=== PATIENT | male | born 1940 | race Caucasian/White ===

== ENCOUNTER 2025-03-11 15:03 | Inpatient (IN) | payer MEDICARE ==
[2025-03-11] MEDS ORDERED: VANCOMYCIN IV PER PHARMACY 1 EACH MISC MISCELLANE PRN (17:03)
[2025-03-11 17:31] LABS: Basophils # (A) 0.04 10*3/uL (0.00-0.10); Basophils % (A) 0.2 %; Eosinophils # (A) 0.03 10*3/uL (0.04-0.35); Eosinophils % (A) 0.2 %; HCT 38.0 % (39.6-50.0); HGB 12.9 g/dL (13.0-17.0); Lymphocytes # (A) 2.40 10*3/uL (0.90-5.00); Lymphocytes % (A) 13.1 %; MCH 32.9 pg (27.0-32.0); MCHC 33.9 g/dL (32.0-37.0); MCV 96.9 fL (80.0-97.0); Monocytes # (A) 2.03 10*3/uL (0.20-1.00); Monocytes % (A) 11.1 %; Neutrophils # (A) 13.72 10*3/uL (1.80-7.70); Neutrophils % (A) 74.8 %; Platelet Count 396 10*3/uL (140-440); RBC 3.92 10*6/uL (4.40-5.60); RDW 15.1 % (11.5-14.5); WBC 18.33 10*3/uL (4.50-10.00)
[2025-03-11] MEDS: SODIUM CHLORIDE 0.9% 1,000 ML IV STA (17:44)
[2025-03-11] MEDS ORDERED: KETOROLAC 15 MG/ML 1 ML VIAL IVP PRN (17:45)
[2025-03-11] MEDS ORDERED: NALOXONE 0.4 MG/ML 1 ML VIAL IV PRN (17:45)
[2025-03-11] MEDS ORDERED: MORPHINE SULFATE 4 MG/ML SYRINGE IV PRN (17:45)
[2025-03-11 17:54] LABS: ALT 67 U/L (4-49); AST 98 U/L (17-59); African American GFR (CKD) >90 (>60 ml/min/1.73 sqM); Albumin 2.7 g/dL (3.5-5.0); Alkaline Phosphatase 487 U/L (38-126); Anion Gap 7 mmol/L; Blood Urea Nitrogen 16 mg/dL (9-20); Calcium 8.6 mg/dL (8.4-10.2); Carbon Dioxide 28 mmol/L (22-30); Chloride 98 mmol/L (98-107); Glucose 109 mg/dL (74-99); Magnesium 2.2 mg/dL (1.6-2.3); Non-African American GFR(CKD) >90 (>60 ml/min/1.73 sqM); Potassium 4.4 mmol/L (3.5-5.1); Sodium 133 mmol/L (137-145); Total Protein 5.4 g/dL (6.3-8.2)
[2025-03-11] MEDS: DIPH,PERTUS(ACELL)TETVAC-LF 0.5 ML VIAL IM ONE (17:54)
[2025-03-11] MEDS: SODIUM CHLORIDE 0.9% 1,000 ML IV ONE (17:56)
[2025-03-11] MEDS: VANCOMYCIN 1,500 MG in SODIUM CHLORIDE 0.9% 500 ML 500 ML IVPB ONE (18:24)
--- NOTE | 2025-03-11 19:06 | ED ---
General Adult HPI - General Chief complaint: Skin/Abscess/Foreign Body Stated complaint: Failure to thrive Time Seen by Provider: 03/11/25 16:00 Source: patient, EMS, RN notes reviewed, old records reviewed Mode of arrival: EMS Limitations: physical limitation - History of Present Illness Initial comments: 85-year-old male who presents emergency department for decubitus ulcers and debility. Patient lives at home and typically receives help from his roommate, who is currently admitted to the hospital. He did have a nurse look at his decubitus ulcers as he is chronically wheelchair-bound and has not been turned recently. They were concerned for infection and told him to come to the ER for evaluation. Denies fevers, nausea, vomiting. Denies any abdominal pain. Denies any chest pain or shortness of breath. Endorses some mild buttock pain secondary to the ulcers. Has no other acute complaints at this time. Is up-to-date on tetanus. Presents for further evaluation. - Related Data Home Medications Medication Instructions Recorded Confirmed Atorvastatin [Lipitor] 40 mg PO DAILY 03/11/25 03/11/25 Cyclobenzaprine [Flexeril] 10 mg PO HS PRN 03/11/25 03/11/25 FLUoxetine HCL [PROzac] See Taper PO DAILY 03/11/25 03/11/25 Metoprolol Succinate (ER) [Toprol 100 mg PO DAILY 03/11/25 03/11/25 Xl] buPROPion XL [Wellbutrin XL] 150 mg PO DAILY 03/11/25 03/11/25 busPIRone HCl [Buspar] 5 mg PO TID 03/11/25 03/11/25 Allergies Allergy/AdvReac Type Severity Reaction Status Date / Time No Known Allergies Allergy Verified 03/11/25 18:21 Review of Systems ROS Statement: Those systems with pertinent positive or pertinent negative responses have been documented in the HPI. Review of Systems: CONST: Denies fever EYES: Denies blurry vision ENT: Denies nasal congestion C/V: Denies Chest pain RESP: Denies shortness of breath GI: Denies abdominal pain : Denies dysuria SKIN: Endorses infected decubitus ulcers MSK: Denies joint pain. NEURO: Denies headache ROS Other: All systems not noted in ROS Statement are negative. Past Medical History Past Medical History: Hypertension Smoking Status: Never smoker Past Alcohol Use History: Rare Past Drug Use History: None Reported General Exam - General Exam Comments Initial Comments: General: Appears in no acute distress. Afebrile HEAD: Normal with no signs of head trauma. EYES: PERRLA, EOMI, conjunctiva normal, no discharge. ENT: Hearing grossly intact, normal oropharynx. RESPIRATORY: Clear breath sounds bilaterally. No wheezes, rales, or rhonchi. C/V: Regular rate and rhythm. S1 and S2 auscultated, no edema, peripheral pulses 2+ and intact throughout ABD: Abd is soft, nontender, nondistended EXT: Normal range of motion, no obvious deformity SKIN: Decubitus ulcers examined in the presence of a nurse disability case manager. Patient has 2 stage II decubitus ulcers, both with what appears to be purulent material. One is located over the sacrum and the other over the right buttock. Wound cultures obtained and sent. Noting erythema present. NEURO: Alert and oriented x 4. No obvious focal deficits. Limitations: physical limitation Course Vital Signs 03/11/25 03/11/25 03/11/25 15:04 16:58 18:00 Temperature 98.3 F Pulse Rate 94 88 89 Respiratory 16 16 16 Rate Blood Pressure 125/69 132/71 129/63 O2 Sat by Pulse 99 97 98 Oximetry 03/11/25 03/11/25 19:37 21:33 Temperature Pulse Rate 89 95 Respiratory 18 18 Rate Blood Pressure 135/63 142/69 O2 Sat by Pulse 96 98 Oximetry Medical Decision Making - Medical Decision Making Was pt. sent in by a medical professional or institution (, PA, CYBER SECURITY ARCHITECT, urgent care, hospital, or detention...) When possible be specific @ -No Did you speak to anyone other than the patient for history (EMS, parent, family, police, friend...)? What history was obtained from this source @ -No Did you review nursing and triage notes (agree or disagree)? Why? @ -I reviewed and agree with nursing and triage notes Were old charts reviewed (outside hosp., previous admission, EMS record, old EKG, old radiological studies, urgent care reports/EKG's, detention records)? Report findings @ -No old charts were reviewed Differential Diagnosis (chest pain, altered mental status, abdominal pain women, abdominal pain men, vaginal bleeding, weakness, fever, dyspnea, syncope, headache, dizziness, GI bleed, back pain, seizure, CVA, palpatations, mental health, musculoskeletal)? @ -Decubitus ulcer, cellulitis, sepsis. This list is not all-inclusive. EKG interpreted by me (3pts min.). @ -As above X-rays interpreted by me (1pt min.). @ -None done CT interpreted by me (1pt min.). @ -None done U/S interpreted by me (1pt. min.). @ -None done What testing was considered but not performed or refused? (CT, X-rays, U/S, labs)? Why? @ -None What meds were considered but not given or refused? Why? @ -None Did you discuss the management of the patient with other professionals (professionals i.e. , PA, CYBER SECURITY ARCHITECT, lab, RT, psych nurse, clinical social worker, package dyeing machine operator, teacher, morals squad police officer, case aide)? Give summary @ -I spoke with the admitting provider, Dr. Cotton who accepted the admission. Was smoking cessation discussed for >3mins.? @ -No Was critical care preformed (if so, how long)? @ -No Were there social determinants of health that impacted care today? How? (H omelessness, low income, unemployed, alcoholism, drug addiction, transportation, low edu. Level, literacy, decrease access to med. care, detention, rehab)? @ -No Was there de-escalation of care discussed even if they declined (Discuss DNR or withdrawal of care, Hospice)? DNR status @ -No What co-morbidities impacted this encounter? (DM, HTN, Smoking, COPD, CAD, Cancer, CVA, ARF, Chemo, Hep., AIDS, mental health diagnosis, sleep apnea, morbid obesity)? @ -Chronic debility, chronic decubitus ulcers Was patient admitted / discharged? Hospital course, mention meds given and route, prescriptions, significant lab abnormalities, going to OR and other pertinent info. @ -Patient presents emergency department complaining of decubitus ulcers as well as no help at home. Is wheelchair-bound. Vitals are within acceptable limits. Afebrile. Examination of his decubitus ulcers remarkable for purulent discharge and surrounding erythema. Concern for infection. Culture obtained and sent. Blood culture sent, basic labs drawn, patient started on IV vancomycin. Remainder the patient's labs returned remarkable for leukocytosis of 18.3. CRP elevation. No other significant findings. Mild elevation in LFTs with no abdominal pain. Patient only has 1 SIRS criteria. Does not meet sepsis criteria. Only SIRS criteria is leukocytosis. Patient does not have a fever. Heart rate is 88. Patient has a normal respiratory rate. On reevaluation, patient is resting comfortably at this time. I updated him. He will be admitted on IV vancomycin. He was in agreement this plan. Consult placed to Dr. Arana for the decubitus wounds. I spoke with the admitting provider, Dr. Cotton who accepted the admission. Undiagnosed new problem with uncertain prognosis? @ -No Drug Therapy requiring intensive monitoring for toxicity (Heparin, Nitro, Insulin, Cardizem)? @ -No Were any procedures done? @ -No Diagnosis/symptom? @ -Infected decubitus ulcers, cellulitis Acute, or Chronic, or Acute on Chronic? @ -Acute Uncomplicated (without systemic symptoms) or Complicated (systemic symptoms)? @ -Complicated Side effects of treatment? @ -No Exacerbation, Progression, or Severe Exacerbation? @ -No Poses a threat to life or bodily function? How? (Chest pain, [place], [place], pneumonia, PE, COPD, DKA, ARF, appy, cholecystitis, CVA, Diverticulitis, Homicidal, Suicidal, threat to staff... and all critical care pts) @ -Yes - Lab Data Result diagrams: 03/11/25 17:27 03/11/25 17:27 Lab Results 03/11/25 03/11/25 03/11/25 Range/Units 17:27 17:27 17:27 WBC 18.33 H (4.50-10.00) 10*3/uL RBC 3.92 L (4.40-5.60) 10*6/uL Hgb 12.9 L (13.0-17.0) g/dL Hct 38.0 L (39.6-50.0) % MCV 96.9 (80.0-97.0) fL MCH 32.9 H (27.0-32.0) pg MCHC 33.9 (32.0-37.0) g/dL Plt Count 396 (140-440) 10*3/uL MPV 8.3 L (9.5-12.2) fL Immature Gran % (Auto) 0.6 % Neutrophils % 74.8 % Lymphocytes % 13.1 % Monocytes % 11.1 % Eosinophils % 0.2 % Basophils % 0.2 % Immature Gran # 0.11 H (0.00-0.04) 10*3/uL Neutrophils # 13.72 H (1.80-7.70) 10*3/uL Lymphocytes # 2.40 (0.90-5.00) 10*3/uL Monocytes # 2.03 H (0.20-1.00) 10*3/uL Eosinophils # 0.03 L (0.04-0.35) 10*3/uL Basophils # 0.04 (0.00-0.10) 10*3/uL Sodium 133 L (137-145) mmol/L Potassium 4.4 (3.5-5.1) mmol/L Chloride 98 (98-107) mmol/L Carbon Dioxide 28 (22-30) mmol/L Anion Gap 7 mmol/L BUN 16 (9-20) mg/dL Creatinine 0.53 L (0.66-1.25) mg/dL Est GFR (CKD-EPI)AfAm >90 (>60 ml/min/1.73 sqM) Est GFR (CKD-EPI)NonAf >90 (>60 ml/min/1.73 sqM) Glucose 109 H (74-99) mg/dL Calcium 8.6 (8.4-10.2) mg/dL Magnesium 2.2 (1.6-2.3) mg/dL Total Bilirubin 1.8 H (0.2-1.3) mg/dL AST 98 H (17-59) U/L ALT 67 H (4-49) U/L Alkaline Phosphatase 487 H (38-126) U/L Creatine Kinase 37 L (55-170) U/L C-Reactive Protein 28.2 H (<1.0) mg/dL Total Protein 5.4 L (6.3-8.2) g/dL Albumin 2.7 L (3.5-5.0) g/dL - EKG Data -: EKG Interpreted by Me EKG Comments: 12-lead Electrocardiogram Interpretation Note EKG was reviewed and interpreted by myself. 12-lead ECG performed at 1628 is interpreted by me as revealing normal sinus rhythm at a rate of 87 beats per minute. [place] is normal. AL interval is 161 ms, QRS durations 108 ms, QTc is 409 ms.. There were no ST or T wave abnormalities to suggest myocardial ischemia or injury. R wave progression across the precordium was satisfactory. By my interpretation this EKG is non-diagnostic for acute ischemia. Disposition Clinical Impression: Infected decubitus ulcer, Cellulitis Disposition: ADMITTED IP TO THIS HOSP Condition: Stable Time of Disposition: 17:45
[2025-03-11 19:48] LABS: Creatine Kinase 37.0 U/L (55-170)
--- NOTE | 2025-03-11 19:54 | P.GSCN ---
History of Present Illness Consult date: 03/11/25 History of present illness: CHIEF COMPLAINT: Sacral ulcer HISTORY OF PRESENT ILLNESS: The patient is a 85-year-old male who was transferred to the emergency room due to generalized weakness. Patient lives alone. Patient presented with elevated white blood cell count. No reports of fevers. He has sacral abscesses of unknown length of time. General surgery is consulted for wound care management. Patient reports that he barely eats or has an appetite. PAST MEDICAL HISTORY: See list and reviewed PAST SURGICAL HISTORY: See list and reviewed MEDICATIONS: See list and reviewed ALLERGIES: See list and reviewed SOCIAL HISTORY: See list and reviewed FAMILY HISTORY: See list and reviewed REVIEW OF ORGAN SYSTEMS: CONSTITUTIONAL: No fevers or chills. No recent weight loss. EYES: Denies any trouble with vision. Wears glasses. HEENT: No difficulties with hearing. No nosebleeds. No difficulty swallowing. RESPIRATORY: Denies pneumonia. Denies any troubles with breathing or dyspnea on exertion. CARDIOVASCULAR: Hypertensive heart disease. Hyperlipidemia. GASTROINTESTINAL: Denies fatty food intolerance. Denies change in bowel habits and gas bloat. GENITOURINARY: Denies any blood in urine or increased urinary frequency. NEUROLOGICAL: Has generalized weakness. MUSCULOSKELETAL: Has back pain, stiffness or joint arthritis. SKIN: No current skin cancer. No rash. PSYCHIATRIC: Has depressive disorder. ENDOCRINE: Denies current thyroid disorders. Denies any blood sugar glucose intolerance. HEME/LYMPHATIC: Denies any lumps and bumps around the neck. No recent deep venous thrombosis. ALLERGY/IMMUNOLOGY: No immunoglobulin therapy. No immune deficiencies. BREAST: Denies current breast lumps, pain or nipple discharge. PHYSICAL EXAM: VITALS: Reviewed CONSTITUTIONAL: Well developed and in no acute distress. EYES: Conjuctivae without sclera icterus. Extraocular movements grossly intact. HEAD, EARS, NOSE, THROAT: Moist buccal mucosa. Head is atraumatic, normocephalic. Hears conversational speech. No nasal drainage. NECK: Supple. No JV distention. No thyroidomegaly. RESPIRATORY: Non-labored respirations and equal bilateral excursions. No gross wheezes. CARDIOVASCULAR: Palpable 2+ radial pulses. ABDOMEN: Nontender. LYMPH: No neck lymphadenopathy. MUSCULOSKELETAL: No clubbing cyanosis or edema SKIN: Trochanteric and sacral ulcers identified unstageable. Purulent drainage. NEUROLOGIC: Cranial nerves II through XII grossly intact. No focal or lateralizing signs. PSYCH: Appropriate affect. Alert and oriented to person, place and time. Displays appropriate insight. CLINCAL LABS: Reviewed. WBC elevated over 18,000. Anemia, hemoglobin 12.9. Sodium low 133. LFTs moderately elevated. Albumin low 2.7. EKG: Borderline. RECORDS: No records available at this institution. ASSESSMENT: 1. Unstageable pressure ulcer 2. Leukocytosis with sepsis 3. Generalized moderate to severe malnutrition 4. Elevated LFTs 5. Anemia 6. Hyponatremia PLAN: 1. Recommend IV antibiotics 2. Recommend infectious disease consultation for IV antibiotics management 3. Recommend consultation with wound care clinic. 4. Agree inpatient hospitalization due to moderate leukocytosis and infected wound ADVANCE DIRECTIVE: CODE STATUS in chart Thank you for this kind consultation. Dictation was produced using [employer] dictation software. Please excuse any grammatical, word or spelling errors. Past Medical History Past Medical History: Hypertension Smoking Status: Never smoker Past Alcohol Use History: Rare Past Drug Use History: None Reported - Past Family History Mother Family Medical History: Cancer Medications and Allergies Home Medications Medication Instructions Recorded Confirmed Type FLUoxetine HCL [PROzac] 10 mg PO BID 03/11/25 03/12/25 History Metoprolol Succinate (ER) [Toprol 100 mg PO DAILY 03/11/25 03/11/25 History XL] busPIRone HCl [Buspar] 5 mg PO TID 03/11/25 03/11/25 History Multivitamins, Thera [Multivitamin 1 tab PO DAILY 03/12/25 03/12/25 History (formulary)] Retinavites 2 1 tab PO BID 03/12/25 03/12/25 History Acetaminophen Tab [Tylenol] 325 mg PO BID PRN #0 03/17/25 03/12/25 Rx Aspirin EC [Ecotrin Low Dose] 81 mg PO DAILY #0 03/17/25 03/12/25 Rx Cholestyramine Resin [Questran 4 gm PO BID@1000,1800 packet 03/17/25 Rx Packet] Cyclobenzaprine [Flexeril] 10 mg PO HS PRN tab 03/17/25 Rx Loperamide [Imodium] 2 mg PO QID PRN cap 03/17/25 Rx Piperacillin-Tazobactam [Zosyn] 3.375 gm IVPB Q8HR #84 each 03/17/25 Rx buPROPion XL [Wellbutrin XL] 150 mg PO DAILY tab 03/17/25 Rx Allergies Allergy/AdvReac Type Severity Reaction Status Date / Time No Known Allergies Allergy Verified 03/11/25 18:21 Surgical - Exam Vital Signs Temp Pulse Resp BP Pulse Ox 98.3 F 94 16 125/69 99 03/11/25 15:04 03/11/25 15:04 03/11/25 15:04 03/11/25 15:04 03/11/25 15:04 Results - Labs 03/18/25 02:50 03/18/25 02:50 Abnormal Lab Results - Last 24 Hours (Table) 03/11/25 03/11/25 Range/Units 17:27 17:27 WBC 18.33 H (4.50-10.00) 10*3/uL RBC 3.92 L (4.40-5.60) 10*6/uL Hgb 12.9 L (13.0-17.0) g/dL Hct 38.0 L (39.6-50.0) % MCH 32.9 H (27.0-32.0) pg MPV 8.3 L (9.5-12.2) fL Immature Gran # 0.11 H (0.00-0.04) 10*3/uL Neutrophils # 13.72 H (1.80-7.70) 10*3/uL Monocytes # 2.03 H (0.20-1.00) 10*3/uL Eosinophils # 0.03 L (0.04-0.35) 10*3/uL Sodium 133 L (137-145) mmol/L Creatinine 0.53 L (0.66-1.25) mg/dL Glucose 109 H (74-99) mg/dL Total Bilirubin 1.8 H (0.2-1.3) mg/dL AST 98 H (17-59) U/L ALT 67 H (4-49) U/L Alkaline Phosphatase 487 H (38-126) U/L Total Protein 5.4 L (6.3-8.2) g/dL Albumin 2.7 L (3.5-5.0) g/dL Diabetes panel 03/11/25 Range/Units 17:27 Sodium 133 L (137-145) mmol/L Potassium 4.4 (3.5-5.1) mmol/L Chloride 98 (98-107) mmol/L Carbon Dioxide 28 (22-30) mmol/L BUN 16 (9-20) mg/dL Creatinine 0.53 L (0.66-1.25) mg/dL Glucose 109 H (74-99) mg/dL Calcium 8.6 (8.4-10.2) mg/dL AST 98 H (17-59) U/L ALT 67 H (4-49) U/L Alkaline Phosphatase 487 H (38-126) U/L Total Protein 5.4 L (6.3-8.2) g/dL Albumin 2.7 L (3.5-5.0) g/dL Calcium panel 03/11/25 Range/Units 17:27 Calcium 8.6 (8.4-10.2) mg/dL Albumin 2.7 L (3.5-5.0) g/dL Pituitary panel 03/11/25 Range/Units 17:27 Sodium 133 L (137-145) mmol/L Potassium 4.4 (3.5-5.1) mmol/L Chloride 98 (98-107) mmol/L Carbon Dioxide 28 (22-30) mmol/L BUN 16 (9-20) mg/dL Creatinine 0.53 L (0.66-1.25) mg/dL Glucose 109 H (74-99) mg/dL Calcium 8.6 (8.4-10.2) mg/dL Adrenal panel 03/11/25 Range/Units 17:27 Sodium 133 L (137-145) mmol/L Potassium 4.4 (3.5-5.1) mmol/L Chloride 98 (98-107) mmol/L Carbon Dioxide 28 (22-30) mmol/L BUN 16 (9-20) mg/dL Creatinine 0.53 L (0.66-1.25) mg/dL Glucose 109 H (74-99) mg/dL Calcium 8.6 (8.4-10.2) mg/dL Total Bilirubin 1.8 H (0.2-1.3) mg/dL AST 98 H (17-59) U/L ALT 67 H (4-49) U/L Alkaline Phosphatase 487 H (38-126) U/L Total Protein 5.4 L (6.3-8.2) g/dL Albumin 2.7 L (3.5-5.0) g/dL
--- NOTE | 2025-03-11 21:14 | P.HPIM ---
History of Present Illness H&P Date: 03/11/25 Chief Complaint: Back pain This is a 85-year-old male patient presenting from home with a past medical history of essential hypertension for concern of an infected decubitus ulcer with complaints of back pain. Patient is sickly dependent on his roommate but unfortunately is admitted to the hospital. It appears that patient is chronically wheelchair-bound and not much has been returned recently. He is suspecting that his ulcer is infected. He reported that a nurse did look at his ulcer and reported that he needs to present to the ER for further evaluation. He denies having any fevers or chills. He does report back and buttock pain. No prior visits to the hospital Upon arrival to the ED, patient was hemodynamically stable. Labs done showing WBC of 18.33, hemoglobin of 12.9, sodium 133, kidney function within normal limit, total bilirubin 1.8, AST 98, ALT 67, alk phos 487, albumin 2.7. Patient received vancomycin and Dr. Vela was consulted. Past medical history : HTN Social history : No tobacco use, no illicit drug use, Review of systems : Negative except for mentioned in HPI PE : General: ill looking , cachectic Derm: warm, dry, intact Head: atraumatic, normocephalic, symmetric Eyes: EOMI, anicteric sclera Mouth: no lip lesion, mucus membranes moist Cardiovascular: S1 S2 reg, no murmur, rubs, or gallops Lungs: CTA bilateral, no rales, no accessory muscle use Abdominal: soft, non-tender to palpataion, no appreciable organomegaly Extremities: no gross muscle atrophy, no edema, no contractures Skin : Stage II decubitus ulcer with purulent discharge. Located over the sacrum and over the right buttocks Assessment and plan : - Skin and soft tissue infection with leukocytosis due to infected decubitus ulcer : Reports of purulent material from the infected site Blood cultures and wound cultures were taken Surgery was consulted Patient did not meet sepsis criteria Will order CRP and ESR Treated initially with vancomycin and will continue with vancomycin and Zosyn with pharmacy consult Wound care consult -Elevated liver enzymes/hyperbilirubinemia : Unknown cause Denies alcohol use Patient was never told that his liver enzymes were elevated prior Will order creatinine kinase Will order right upper quadrant ultrasound Patient denies having any abdominal pain -Failure to thrive in adult/hypoalbuminemia/protein calorie malnutrition: Dietitian consult CODE STATUS is full code and his prognosis is guarded DVT prophylaxis on heparin subcu Disposition : Patient will need PT evaluation and likely will benefit from placement Patient will be admitted as inpatient Time spent : 55 min Past Medical History Past Medical History: Hypertension Smoking Status: Never smoker Past Alcohol Use History: Rare Past Drug Use History: None Reported Medications and Allergies Home Medications Medication Instructions Recorded Confirmed Type Atorvastatin [Lipitor] 40 mg PO DAILY 03/11/25 03/11/25 History Cyclobenzaprine [Flexeril] 10 mg PO HS PRN 03/11/25 03/11/25 History FLUoxetine HCL [PROzac] See Taper PO DAILY 03/11/25 03/11/25 History Metoprolol Succinate (ER) [Toprol 100 mg PO DAILY 03/11/25 03/11/25 History Xl] buPROPion XL [Wellbutrin XL] 150 mg PO DAILY 03/11/25 03/11/25 History busPIRone HCl [Buspar] 5 mg PO TID 03/11/25 03/11/25 History Allergies Allergy/AdvReac Type Severity Reaction Status Date / Time No Known Allergies Allergy Verified 03/11/25 18:21 Physical Exam Vitals: Vital Signs Temp Pulse Resp BP Pulse Ox 03/11/25 18:00 89 16 129/63 98 03/11/25 16:58 88 16 132/71 97 03/11/25 15:04 98.3 F 94 16 125/69 99 Intake and Output 03/11/25 03/11/25 03/11/25 06:59 14:59 22:59 Other: Weight 79.379 kg Results CBC & Chem 7: 03/11/25 17:27 03/11/25 17:27 Labs: Abnormal Lab Results - Last 24 Hours (Table) 03/11/25 03/11/25 Range/Units 17:27 17:27 WBC 18.33 H (4.50-10.00) 10*3/uL RBC 3.92 L (4.40-5.60) 10*6/uL Hgb 12.9 L (13.0-17.0) g/dL Hct 38.0 L (39.6-50.0) % MCH 32.9 H (27.0-32.0) pg MPV 8.3 L (9.5-12.2) fL Immature Gran # 0.11 H (0.00-0.04) 10*3/uL Neutrophils # 13.72 H (1.80-7.70) 10*3/uL Monocytes # 2.03 H (0.20-1.00) 10*3/uL Eosinophils # 0.03 L (0.04-0.35) 10*3/uL Sodium 133 L (137-145) mmol/L Creatinine 0.53 L (0.66-1.25) mg/dL Glucose 109 H (74-99) mg/dL Total Bilirubin 1.8 H (0.2-1.3) mg/dL AST 98 H (17-59) U/L ALT 67 H (4-49) U/L Alkaline Phosphatase 487 H (38-126) U/L Total Protein 5.4 L (6.3-8.2) g/dL Albumin 2.7 L (3.5-5.0) g/dL
--- NOTE | 2025-03-11 21:36 | US ---
EXAMINATION TYPE: US abdomen limited DATE OF EXAM: 03/11/2025 COMPARISON: NONE CLINICAL INDICATION: Male, 85 years old with history of elevated liver enzymes , RUQ U/S; liver enzym es TECHNIQUE: Grayscale and color Doppler imaging of the right upper quadrant was performed. FINDINGS: EXAM MEASUREMENTS: Liver Length: 13.3 cm Gallbladder Wall: 0.3 cm CBD: obscured by gas and rib shadows Right Kidney: 10.4 x 5.7 x 4.8 cm HOUSE PAINTER HELPER NOTES: severely limited due to gas and body habitus. intercostal views used for entiret y of exam Pancreas: Obscured by bowel gas Liver: portions visualized wnl Gallbladder: wnl as best visualized intercostally Evidence for sonographic Juares's sign: no CBD: Obscured by overlying bowel gas Right Kidney: multiple anechoic areas largest in the superior pole measuring 7.0 x 6.1 x 8.3cm. anec hoic areas within the collection system. two echogenic foci seen, one mid measuring 1.0cm and one inf erior measuring 7mm IMPRESSION: Exam is limited due to gas and body habitus. The common bile duct is not visualized however the gallb ladder and visualized portions of the liver appears within normal limits. Cystic changes are suggested within the right kidney with the largest of these measuring up to 8.3 cm . Additionally right renal calculi are seen measuring up to 1.0 cm. No discrete sonographic evidence for right hydronephrosis. [facility], , 03/11/2025 9:34 PM
[2025-03-11] MEDS: PIPERACILLIN-TAZOBACTAM 3.375 GM in SODIUM CHLORIDE 0.9% 100 ML IVPB SCH (21:40)
[2025-03-11] MEDS: HEPARIN SODIUM,PORCINE 5,000 UNIT/ML 1 ML VIAL SQ SCH (21:40)
[2025-03-12] MEDS: ACETAMINOPHEN TAB 325 MG TAB PO PRN (04:03)
[2025-03-12] MEDS: VANCOMYCIN 1,500 MG in SODIUM CHLORIDE 0.9% 500 ML 500 ML IVPB SCH (06:38)
[2025-03-12 07:03] LABS: Bacteria,Urine Rare /hpf; Bilirubin,Urine Negative (Negative); Blood,Urine Small (Negative); Color,Urine Yellow; Glucose,Urine (UA) Negative (Negative); Ketones,Urine Negative (Negative); Leukocyte Esterase,Urine Moderate (Negative); Mucus,Urine Rare /hpf; Nitrite,Urine Negative (Negative); PH, Urine 5.5 (5.0-8.0); Protein,Urine 1+ (Negative); RBC,Urine 21 /hpf (0-5); Specific Gravity,Urine 1.023 (1.001-1.035); Urobilinogen,Urine 2.0 mg/dL (<2.0); WBC,Urine 21 /hpf (0-5)
[2025-03-12 09:58] LABS: Basophils # (A) 0.05 10*3/uL (0.00-0.10); Basophils % (A) 0.3 %; Eosinophils # (A) 0.07 10*3/uL (0.04-0.35); Eosinophils % (A) 0.5 %; HCT 37.4 % (39.6-50.0); HGB 12.4 g/dL (13.0-17.0); Lymphocytes # (A) 2.29 10*3/uL (0.90-5.00); Lymphocytes % (A) 15.6 %; MCH 33.2 pg (27.0-32.0); MCHC 33.2 g/dL (32.0-37.0); MCV 100.0 fL (80.0-97.0); Monocytes # (A) 1.57 10*3/uL (0.20-1.00); Monocytes % (A) 10.7 %; Neutrophils # (A) 10.56 10*3/uL (1.80-7.70); Neutrophils % (A) 72.1 %; Platelet Count 356 10*3/uL (140-440); RBC 3.74 10*6/uL (4.40-5.60); RDW 15.1 % (11.5-14.5); WBC 14.66 10*3/uL (4.50-10.00)
[2025-03-12 10:15] LABS: ALT 72 U/L (4-49); AST 109 U/L (17-59); African American GFR (CKD) >90 (>60 ml/min/1.73 sqM); Albumin 2.3 g/dL (3.5-5.0); Albumin/Globulin Ratio 1.0; Alkaline Phosphatase 408 U/L (38-126); Anion Gap 8 mmol/L; Blood Urea Nitrogen 14 mg/dL (9-20); Calcium 8.1 mg/dL (8.4-10.2); Carbon Dioxide 23 mmol/L (22-30); Chloride 105 mmol/L (98-107); Globulin 2.4 g/dL; Glucose 104 mg/dL (74-99); Non-African American GFR(CKD) >90 (>60 ml/min/1.73 sqM); Potassium 4.2 mmol/L (3.5-5.1); Sodium 136 mmol/L (137-145); Total Protein 4.7 g/dL (6.3-8.2)
[2025-03-12 12:01] VITALS: BMI 23.7
[2025-03-12] MEDS ORDERED: CYCLOBENZAPRINE 10 MG TAB PO PRN (12:01)
--- NOTE | 2025-03-12 12:03 | P.PN ---
Subjective Progress Note Date: 03/12/25 Hospital Course: This is a 85-year-old male patient presenting from home with a past medical hi story of essential hypertension for concern of an infected decubitus ulcer with complaints of back pain. Patient is sickly dependent on his roommate but unfortunately is admitted to the hospital. It appears that patient is chronically wheelchair-bound and not much has been returned recently. He is suspecting that his ulcer is infected. He reported that a nurse did look at his ulcer and reported that he needs to present to the ER for further evaluation. He denies having any fevers or chills. He does report back and buttock pain. No prior visits to the hospital Upon arrival to the ED, patient was hemodynamically stable. Labs done showing WBC of 18.33, hemoglobin of 12.9, sodium 133, kidney function within normal limit, total bilirubin 1.8, AST 98, ALT 67, alk phos 487, albumin 2.7. Patient received vancomycin and Dr. Vela was consulted. They recommended wound care consult as well as infectious disease.. 03/12/2025: Seen examined in the ER, no acute events overnight, patient complains of chronic wounds, no other particular complaints at this time. He shared that he has been more sedentary recently, he sometimes is able to get up and use walkers but is wheelchair-bound at home. He is afebrile with normal blood pressure, satting well on room air. Blood work shows improving leukocytosis 14.6, stable hemoglobin 12.4, platelet count normal, sodium improved to 126, potassium and chloride normal, creatinine 0.52, AST 109, ALT 72, ALP 480, CRP significantly elevated 28.2, ESR elevated 58. Abdominal ultrasound showed very limited exam due to gas, CBD not visualized, gallbladder and visualized portion of the liver appears within normal limits. Right kidney cystic changes with largest cyst 8.3 cm Pertinent positives and negatives as discussed above, a complete review of systems was performed and all other systems are negative. Vitals Signs Reviewed. General: [nontoxic], [chronically ill-appearing Derm: [Stage II decubitus ulcer with purulent discharge. Located over the sacrum and over the right buttocks Head: [atraumatic], [normocephalic], [symmetric] Eyes: [EOMI], [no lid lag], [anicteric sclera] Mouth: [no lip lesion], [mucus membranes moist] Cardiovascular: [S1S2 reg], [no murmur] Lungs: [CTA bilateral], [no rhonchi, no rales] , [no accessory muscle use] Abdominal: [soft], [ nontender to palpation], [no guarding], [no appreciable organomegaly] Ext: [no gross muscle atrophy], [no edema], [no contractures] Neuro: [ CN II-XI grossly intact], [no focal neuro deficits] Psych: [Alert], [oriented], [appropriate affect] Assessment and Plan: Infected decubitus ulcer Failure to thrive Protein calorie malnutrition - General Surgery consulted, wound care consulted, infectious disease consulted, appreciate recommendations - Follow-up on blood and blood cultures - Inflammatory markers elevated as above - Continue vancomycin pharmacy to dose, Zosyn 3.375 every 8 hours, monitor BMP daily for renal toxicity, monitor CBC daily due to leukocytosis - Ordered MRSA swab - PT OT consulted -Nutrition consulted Elevated ALP, liver enzymes, unknown cause -Abdominal ultrasound as above -Recheck CMP in the morning -No abdominal pain or tenderness Hypertension Depression Hyperlipidemia -Continue home Lipitor 40 daily, Wellbutrin 150 daily, BuSpar 5 mg 3 times daily, Prozac 10 mg daily, metoprolol 100 mg daily DVT ppx: Heparin Code status: Full code Anticipated discharge place: TBD Anticipated discharge time: TBD Objective - Vital Signs Vital signs: Vital Signs Temp 98.2 F 03/12/25 03:58 Pulse 87 03/12/25 08:03 Resp 18 03/12/25 08:03 BP 107/56 03/12/25 08:03 Pulse Ox 100 03/12/25 08:03 FiO2 Intake & Output 03/11/25 03/12/25 03/12/25 18:59 06:59 18:59 Weight 79.379 kg 79.379 kg - Labs CBC & Chem 7: 03/12/25 08:25 03/12/25 08:25 Labs: Abnormal Lab Results - Last 24 Hours (Table) 03/11/25 03/11/25 03/11/25 Range/Units 17:27 17:27 17:27 WBC 18.33 H (4.50-10.00) 10*3/uL RBC 3.92 L (4.40-5.60) 10*6/uL Hgb 12.9 L (13.0-17.0) g/dL Hct 38.0 L (39.6-50.0) % MCV (80.0-97.0) fL MCH 32.9 H (27.0-32.0) pg RDW (11.5-14.5) % MPV 8.3 L (9.5-12.2) fL Immature Gran # 0.11 H (0.00-0.04) 10*3/uL Neutrophils # 13.72 H (1.80-7.70) 10*3/uL Monocytes # 2.03 H (0.20-1.00) 10*3/uL Eosinophils # 0.03 L (0.04-0.35) 10*3/uL ESR (0-20) mm/Hr Sodium 133 L (137-145) mmol/L Creatinine 0.53 L (0.66-1.25) mg/dL Glucose 109 H (74-99) mg/dL Calcium (8.4-10.2) mg/dL Total Bilirubin 1.8 H (0.2-1.3) mg/dL AST 98 H (17-59) U/L ALT 67 H (4-49) U/L Alkaline Phosphatase 487 H (38-126) U/L Creatine Kinase 37 L (55-170) U/L C-Reactive Protein 28.2 H (<1.0) mg/dL Total Protein 5.4 L (6.3-8.2) g/dL Albumin 2.7 L (3.5-5.0) g/dL Urine Protein (Negative) Urine Blood (Negative) Ur Leukocyte Esterase (Negative) Urine RBC (0-5) /hpf Urine WBC (0-5) /hpf Urine Bacteria (None) /hpf Urine Mucus (None) /hpf 03/11/25 03/12/25 03/12/25 Range/Units 17:27 06:43 08:25 WBC 14.66 H (4.50-10.00) 10*3/uL RBC 3.74 L (4.40-5.60) 10*6/uL Hgb 12.4 L (13.0-17.0) g/dL Hct 37.4 L (39.6-50.0) % MCV 100.0 H (80.0-97.0) fL MCH 33.2 H (27.0-32.0) pg RDW 15.1 H (11.5-14.5) % MPV 9.3 L (9.5-12.2) fL Immature Gran # 0.12 H (0.00-0.04) 10*3/uL Neutrophils # 10.56 H (1.80-7.70) 10*3/uL Monocytes # 1.57 H (0.20-1.00) 10*3/uL Eosinophils # (0.04-0.35) 10*3/uL ESR 58 H (0-20) mm/Hr Sodium (137-145) mmol/L Creatinine (0.66-1.25) mg/dL Glucose (74-99) mg/dL Calcium (8.4-10.2) mg/dL Total Bilirubin (0.2-1.3) mg/dL AST (17-59) U/L ALT (4-49) U/L Alkaline Phosphatase (38-126) U/L Creatine Kinase (55-170) U/L C-Reactive Protein (<1.0) mg/dL Total Protein (6.3-8.2) g/dL Albumin (3.5-5.0) g/dL Urine Protein 1+ H (Negative) Urine Blood Small H (Negative) Ur Leukocyte Esterase Moderate H (Negative) Urine RBC 21 H (0-5) /hpf Urine WBC 21 H (0-5) /hpf Urine Bacteria Rare H (None) /hpf Urine Mucus Rare H (None) /hpf 03/12/25 Range/Units 08:25 WBC (4.50-10.00) 10*3/uL RBC (4.40-5.60) 10*6/uL Hgb (13.0-17.0) g/dL Hct (39.6-50.0) % MCV (80.0-97.0) fL MCH (27.0-32.0) pg RDW (11.5-14.5) % MPV (9.5-12.2) fL Immature Gran # (0.00-0.04) 10*3/uL Neutrophils # (1.80-7.70) 10*3/uL Monocytes # (0.20-1.00) 10*3/uL Eosinophils # (0.04-0.35) 10*3/uL ESR (0-20) mm/Hr Sodium 136 L (137-145) mmol/L Creatinine 0.52 L (0.66-1.25) mg/dL Glucose 104 H (74-99) mg/dL Calcium 8.1 L (8.4-10.2) mg/dL Total Bilirubin (0.2-1.3) mg/dL AST 109 H (17-59) U/L ALT 72 H (4-49) U/L Alkaline Phosphatase 408 H (38-126) U/L Creatine Kinase (55-170) U/L C-Reactive Protein (<1.0) mg/dL Total Protein 4.7 L (6.3-8.2) g/dL Albumin 2.3 L (3.5-5.0) g/dL Urine Protein (Negative) Urine Blood (Negative) Ur Leukocyte Esterase (Negative) Urine RBC (0-5) /hpf Urine WBC (0-5) /hpf Urine Bacteria (None) /hpf Urine Mucus (None) /hpf
--- NOTE | 2025-03-12 15:19 | P.CONS ---
History of Present Illness - Reason for Consult Consult date: 03/12/25 wound care - History of Present Illness This is an 85-year-old patient being seen in the ER exam 30 for a nonhealing ulceration to the sacrum. Patient has a stage III pressure ulcer to the sacrum measuring approximately 3 x 3.5 x 0.3 cm with significant amount of slough and nonviable tissue present the ulceration does have an odiferous odor. And purulent drainage to the site. No granulation seen throughout no tunneling or undermining noted. Wound edges are attached to the wound base. Excoriation noted to periwound. Past medical history significant for hypertension Review Of Systems: Constitutional: No fever, no chills, no night sweats. No weight change. No weakness, fatigue or lethargy. No daytime sleepiness. Integumentary:reports wounds, no lesions. No rash or pruritus. No unusual bruising. No change in hair or nails. Physical exam: General Appearance: Alert, cooperative, no distress, appears stated age. Skin: See HPI all other Skin color, texture, tugor normal, no rashes or lesions. Neurologic: Alert oriented x3 Assessment: 1. Stage III pressure ulcer sacrum Plan: 1. Apply honey gel and bordered foam to the site daily. Patient may benefit from a surgical debridement. Patient would benefit from advanced wound care and wound care setting. Patient states that he is unable to come to the wound care center upon discharge. We would be happy to see him if he is able to make it. Thank you for the consultation any questions please contact the wound care center DNP note has been reviewed and discussed with Dr. Overton and the impression and plan of care has been directed as dictated. Past Medical History Past Medical History: Hypertension Smoking Status: Never smoker Past Alcohol Use History: Rare Past Drug Use History: None Reported Medications and Allergies Home Medications Medication Instructions Recorded Confirmed Type Atorvastatin [Lipitor] 40 mg PO DAILY 03/11/25 03/11/25 History FLUoxetine HCL [PROzac] 10 mg PO BID 03/11/25 03/12/25 History Metoprolol Succinate (ER) [Toprol 100 mg PO DAILY 03/11/25 03/11/25 History Xl] busPIRone HCl [Buspar] 5 mg PO TID 03/11/25 03/11/25 History Acetaminophen Tab [Tylenol] 325 mg PO BID 03/12/25 03/12/25 History Aspirin EC [Ecotrin Low Dose] 81 mg PO DAILY 03/12/25 03/12/25 History Cyclobenzaprine [Flexeril] 5 mg PO HS PRN 03/12/25 03/12/25 History Multivitamins, Thera [Multivitamin 1 tab PO DAILY 03/12/25 03/12/25 History (formulary)] Retinavites 2 1 tab PO BID 03/12/25 03/12/25 History Allergies Allergy/AdvReac Type Severity Reaction Status Date / Time No Known Allergies Allergy Verified 03/11/25 18:21 Physical Exam Vitals: Vital Signs Temp Pulse Resp BP Pulse Ox 03/12/25 13:08 64 16 128/64 99 03/12/25 08:03 87 18 107/56 100 03/12/25 06:43 73 19 111/55 96 03/12/25 03:58 98.2 F 100 18 130/69 97 03/11/25 22:53 96 16 135/65 98 03/11/25 21:33 95 18 142/69 98 03/11/25 19:37 89 18 135/63 96 03/11/25 18:00 89 16 129/63 98 03/11/25 16:58 88 16 132/71 97 Intake and Output 03/12/25 03/12/25 03/12/25 06:59 14:59 22:59 Other: Weight 79.379 kg Results CBC & Chem 7: 03/12/25 08:25 03/12/25 08:25 Labs: Abnormal Lab Results - Last 24 Hours (Table) 03/11/25 03/11/25 03/11/25 Range/Units 17:27 17:27 17:27 WBC 18.33 H (4.50-10.00) 10*3/uL RBC 3.92 L (4.40-5.60) 10*6/uL Hgb 12.9 L (13.0-17.0) g/dL Hct 38.0 L (39.6-50.0) % MCV (80.0-97.0) fL MCH 32.9 H (27.0-32.0) pg RDW (11.5-14.5) % MPV 8.3 L (9.5-12.2) fL Immature Gran # 0.11 H (0.00-0.04) 10*3/uL Neutrophils # 13.72 H (1.80-7.70) 10*3/uL Monocytes # 2.03 H (0.20-1.00) 10*3/uL Eosinophils # 0.03 L (0.04-0.35) 10*3/uL ESR (0-20) mm/Hr Sodium 133 L (137-145) mmol/L Creatinine 0.53 L (0.66-1.25) mg/dL Glucose 109 H (74-99) mg/dL Calcium (8.4-10.2) mg/dL Total Bilirubin 1.8 H (0.2-1.3) mg/dL AST 98 H (17-59) U/L ALT 67 H (4-49) U/L Alkaline Phosphatase 487 H (38-126) U/L Creatine Kinase 37 L (55-170) U/L C-Reactive Protein 28.2 H (<1.0) mg/dL Total Protein 5.4 L (6.3-8.2) g/dL Albumin 2.7 L (3.5-5.0) g/dL Urine Protein (Negative) Urine Blood (Negative) Ur Leukocyte Esterase (Negative) Urine RBC (0-5) /hpf Urine WBC (0-5) /hpf Urine Bacteria (None) /hpf Urine Mucus (None) /hpf 03/11/25 03/12/25 03/12/25 Range/Units 17:27 06:43 08:25 WBC 14.66 H (4.50-10.00) 10*3/uL RBC 3.74 L (4.40-5.60) 10*6/uL Hgb 12.4 L (13.0-17.0) g/dL Hct 37.4 L (39.6-50.0) % MCV 100.0 H (80.0-97.0) fL MCH 33.2 H (27.0-32.0) pg RDW 15.1 H (11.5-14.5) % MPV 9.3 L (9.5-12.2) fL Immature Gran # 0.12 H (0.00-0.04) 10*3/uL Neutrophils # 10.56 H (1.80-7.70) 10*3/uL Monocytes # 1.57 H (0.20-1.00) 10*3/uL Eosinophils # (0.04-0.35) 10*3/uL ESR 58 H (0-20) mm/Hr Sodium (137-145) mmol/L Creatinine (0.66-1.25) mg/dL Glucose (74-99) mg/dL Calcium (8.4-10.2) mg/dL Total Bilirubin (0.2-1.3) mg/dL AST (17-59) U/L ALT (4-49) U/L Alkaline Phosphatase (38-126) U/L Creatine Kinase (55-170) U/L C-Reactive Protein (<1.0) mg/dL Total Protein (6.3-8.2) g/dL Albumin (3.5-5.0) g/dL Urine Protein 1+ H (Negative) Urine Blood Small H (Negative) Ur Leukocyte Esterase Moderate H (Negative) Urine RBC 21 H (0-5) /hpf Urine WBC 21 H (0-5) /hpf Urine Bacteria Rare H (None) /hpf Urine Mucus Rare H (None) /hpf 07//25 Range/Units 08:25 WBC (4.50-10.00) 10*3/uL RBC (4.40-5.60) 10*6/uL Hgb (13.0-17.0) g/dL Hct (39.6-50.0) % MCV (80.0-97.0) fL MCH (27.0-32.0) pg RDW (11.5-14.5) % MPV (9.5-12.2) fL Immature Gran # (0.00-0.04) 10*3/uL Neutrophils # (1.80-7.70) 10*3/uL Monocytes # (0.20-1.00) 10*3/uL Eosinophils # (0.04-0.35) 10*3/uL ESR (0-20) mm/Hr Sodium 136 L (137-145) mmol/L Creatinine 0.52 L (0.66-1.25) mg/dL Glucose 104 H (74-99) mg/dL Calcium 8.1 L (8.4-10.2) mg/dL Total Bilirubin (0.2-1.3) mg/dL AST 109 H (17-59) U/L ALT 72 H (4-49) U/L Alkaline Phosphatase 408 H (38-126) U/L Creatine Kinase (55-170) U/L C-Reactive Protein (<1.0) mg/dL Total Protein 4.7 L (6.3-8.2) g/dL Albumin 2.3 L (3.5-5.0) g/dL Urine Protein (Negative) Urine Blood (Negative) Ur Leukocyte Esterase (Negative) Urine RBC (0-5) /hpf Urine WBC (0-5) /hpf Urine Bacteria (None) /hpf Urine Mucus (None) /hpf Assessment and Plan (1) Stage III pressure ulcer of sacral region Current Visit: Yes Status: Acute Code(s): L89.153 - PRESSURE ULCER OF SACRAL REGION, STAGE 3 SNOMED Code(s): 41414632234475
[2025-03-12] MEDS: IV FLUID CONTINUATION 1,000 ML IV ONE (16:19)
[2025-03-12] MEDS: ONDANSETRON 4 MG/2 ML VIAL IVP PRN (16:32)
[2025-03-12] MEDS ORDERED: PROPOFOL 10 MG/ML 20 ML VIAL IV ONE (17:40)
[2025-03-12] MEDS ORDERED: VASOPRESSIN 20 UNIT/ML 1 ML VIAL ONE (17:40)
[2025-03-12] MEDS ORDERED: fentaNYL (PF) 50 MCG/ML 2 ML AMP ONE (17:40)
[2025-03-12] MEDS ORDERED: PHENYLEPHRINE-0.9% NACL SYG 1,000 MCG/10 ML SYRINGE ONE (17:40)
[2025-03-12] MEDS: LIDOCAINE 1%-EPI 1:100,000 20 ML VIAL SQ ONE (18:10)
[2025-03-12] MEDS ORDERED: ONDANSETRON 4 MG/2 ML VIAL IVP PRN (19:50)
[2025-03-12] MEDS ORDERED: HYDROmorphone 0.5 MG/0.5 ML SYRINGE IVP PRN (19:50)
[2025-03-12] MEDS ORDERED: HYDROmorphone 1 MG/ML 1 ML SYRINGE IVP PRN (19:50)
--- NOTE | 2025-03-13 07:11 | P.CONS ---
History of Present Illness - Reason for Consult Consult date: 03/12/25 Sepsis Requesting physician: Teresa Arana - Chief Complaint Nonhealing sacral wound and back pain x days - History of Present Illness Patient is a 85-year-old male with a past medical history significant for hypertension has been brought to the hospital concerning for infected sacral pressure ulcer patient apparently is dependent on his roommate for his care as the patient is chronically wheelchair-bound and has been brought in with the home care nurse look into his sacral wound concerning for infection with the patient has been sent to the hospital for further evaluation patient not very clear for how long he had this ulcer or what kind of treatment has been provided to him has been complaining of pain to the lower back area mostly dull aching mi ld to moderate days without radiation patient noticed to have significant slough tissue to the wound with some foul-smelling patient denies having any high-grade fever or any chills and no fever was recorded on presentation to the hospital patient was tachycardic but not hypotensive or hypoxic he did have elevated white count of 18.33 with a left shift creatinine 0.53 liver enzymes mildly elevated urine is positive local culture and blood cultures obtained which are currently pending patient was started on vancomycin and Zosyn infectious disease was consulted for further management of antibiotic therapy Review of Systems Positive point and negatives has been mentioned in the HPI, complete review of systems was performed and all other systems are negative Past Medical History Past Medical History: Hypertension Smoking Status: Never smoker Past Alcohol Use History: Rare Past Drug Use History: None Reported - Past Family History Mother Family Medical History: Cancer Medications and Allergies Home Medications Medication Instructions Recorded Confirmed Type Atorvastatin [Lipitor] 40 mg PO DAILY 03/11/25 03/11/25 History FLUoxetine HCL [PROzac] 10 mg PO BID 03/11/25 03/12/25 History Metoprolol Succinate (ER) [Toprol 100 mg PO DAILY 03/11/25 03/11/25 History Xl] busPIRone HCl [Buspar] 5 mg PO TID 03/11/25 03/11/25 History Acetaminophen Tab [Tylenol] 325 mg PO BID 03/12/25 03/12/25 History Aspirin EC [Ecotrin Low Dose] 81 mg PO DAILY 03/12/25 03/12/25 History Cyclobenzaprine [Flexeril] 5 mg PO HS PRN 03/12/25 03/12/25 History Multivitamins, Thera [Multivitamin 1 tab PO DAILY 03/12/25 03/12/25 History (formulary)] Retinavites 2 1 tab PO BID 03/12/25 03/12/25 History Allergies Allergy/AdvReac Type Severity Reaction Status Date / Time No Known Allergies Allergy Verified 03/11/25 18:21 Physical Exam Vitals: Vital Signs Temp Pulse Resp BP Pulse Ox 03/12/25 13:08 64 16 128/64 99 03/12/25 08:03 87 18 107/56 100 03/12/25 06:43 73 19 111/55 96 03/12/25 03:58 98.2 F 100 18 130/69 97 03/11/25 22:53 96 16 135/65 98 03/11/25 21:33 95 18 142/69 98 03/11/25 19:37 89 18 135/63 96 03/11/25 18:00 89 16 129/63 98 03/11/25 16:58 88 16 132/71 97 03/11/25 15:04 98.3 F 94 16 125/69 99 Intake and Output 03/11/25 03/12/25 03/12/25 22:59 06:59 14:59 Other: Weight 79.379 kg 79.379 kg GENERAL DESCRIPTION: Elderly male lying in bed, no distress. No tachypnea or accessory muscle of respiration use. HEENT: Shows Pallor , no scleral icterus. Oral mucous membrane is dry. No pharyngeal erythema or thrush NECK: Trachea central, no thyromegaly. LUNGS: Unlabored breathing. Clear to auscultation anteriorly. No wheeze or crackle. HEART: S1, S2, regular rate and rhythm. No loud murmur ABDOMEN: Soft, no tenderness , guarding or rigidity, no organomegaly EXTREMITIES: No edema of feet. SKIN: Patient did have stage III sacral pressure ulcer with slough tissue no surrounding redness minimal foul-smelling also having unstageable ulcer to the. Left posterior thigh area NEUROLOGICAL: The patient is awake, alert, oriented x3, mood and affect normal. Results CBC & Chem 7: 03/12/25 08:25 03/12/25 08:25 Labs: Abnormal Lab Results - Last 24 Hours (Table) 03/11/25 03/11/2503/11/25 Range/Units 17:27 17:27 17:27 WBC 18.33 H (4.50-10.00) 10*3/uL RBC 3.92 L (4.40-5.60) 10*6/uL Hgb 12.9 L (13.0-17.0) g/dL Hct 38.0 L (39.6-50.0) % MCV (80.0-97.0) fL MCH 32.9 H (27.0-32.0) pg RDW (11.5-14.5) % MPV 8.3 L (9.5-12.2) fL Immature Gran # 0.11 H (0.00-0.04) 10*3/uL Neutrophils # 13.72 H (1.80-7.70) 10*3/uL Monocytes # 2.03 H (0.20-1.00) 10*3/uL Eosinophils # 0.03 L (0.04-0.35) 10*3/uL ESR (0-20) mm/Hr Sodium 133 L (137-145) mmol/L Creatinine 0.53 L (0.66-1.25) mg/dL Glucose 109 H (74-99) mg/dL Calcium (8.4-10.2) mg/dL Total Bilirubin 1.8 H (0.2-1.3) mg/dL AST 98 H (17-59) U/L ALT 67 H (4-49) U/L Alkaline Phosphatase 487 H (38-126) U/L Creatine Kinase 37 L (55-170) U/L C-Reactive Protein 28.2 H (<1.0) mg/dL Total Protein 5.4 L (6.3-8.2) g/dL Albumin 2.7 L (3.5-5.0) g/dL Urine Protein (Negative) Urine Blood (Negative) Ur Leukocyte Esterase (Negative) Urine RBC (0-5) /hpf Urine WBC (0-5) /hpf Urine Bacteria (None) /hpf Urine Mucus (None) /hpf 03/11/25 03/12/25 03/12/25 Range/Units 17:27 06:43 08:25 WBC 14.66 H (4.50-10.00) 10*3/uL RBC 3.74 L (4.40-5.60) 10*6/uL Hgb 12.4 L (13.0-17.0) g/dL Hct 37.4 L (39.6-50.0) % MCV 100.0 H (80.0-97.0) fL MCH 33.2 H (27.0-32.0) pg RDW 15.1 H (11.5-14.5) % MPV 9.3 L (9.5-12.2) fL Immature Gran # 0.12 H (0.00-0.04) 10*3/uL Neutrophils # 10.56 H (1.80-7.70) 10*3/uL Monocytes # 1.57 H (0.20-1.00) 10*3/uL Eosinophils # (0.04-0.35) 10*3/uL ESR 58 H (0-20) mm/Hr Sodium (137-145) mmol/L Creatinine (0.66-1.25) mg/dL Glucose (74-99) mg/dL Calcium (8.4-10.2) mg/dL Total Bilirubin (0.2-1.3) mg/dL AST (17-59) U/L ALT (4-49) U/L Alkaline Phosphatase (38-126) U/L Creatine Kinase (55-170) U/L C-Reactive Protein (<1.0) mg/dL Total Protein (6.3-8.2) g/dL Albumin (3.5-5.0) g/dL Urine Protein 1+ H (Negative) Urine Blood Small H (Negative) Ur Leukocyte Esterase Moderate H (Negative) Urine RBC 21 H (0-5) /hpf Urine WBC 21 H (0-5) /hpf Urine Bacteria Rare H (None) /hpf Urine Mucus Rare H (None) /hpf 03/12/25 Range/Units 08:25 WBC (4.50-10.00) 10*3/uL RBC (4.40-5.60) 10*6/uL Hgb (13.0-17.0) g/dL Hct (39.6-50.0) % MCV (80.0-97.0) fL MCH (27.0-32.0) pg RDW (11.5-14.5) % MPV (9.5-12.2) fL Immature Gran # (0.00-0.04) 10*3/uL Neutrophils # (1.80-7.70) 10*3/uL Monocytes # (0.20-1.00) 10*3/uL Eosinophils # (0.04-0.35) 10*3/uL ESR (0-20) mm/Hr Sodium 136 L (137-145) mmol/L Creatinine 0.52 L (0.66-1.25) mg/dL Glucose 104 H (74-99) mg/dL Calcium 8.1 L (8.4-10.2) mg/dL Total Bilirubin (0.2-1.3) mg/dL AST 109 H (17-59) U/L ALT 72 H (4-49) U/L Alkaline Phosphatase 408 H (38-126) U/L Creatine Kinase (55-170) U/L C-Reactive Protein (<1.0) mg/dL Total Protein 4.7 L (6.3-8.2) g/dL Albumin 2.3 L (3.5-5.0) g/dL Urine Protein (Negative) Urine Blood (Negative) Ur Leukocyte Esterase (Negative) Urine RBC (0-5) /hpf Urine WBC (0-5) /hpf Urine Bacteria (None) /hpf Urine Mucus (None) /hpf Assessment and Plan (1) Leukocytosis Current Visit: Yes Status: Acute Code(s): D72.829 - ELEVATED WHITE BLOOD CELL COUNT, UNSPECIFIED SNOMED Code(s): 015185593 (2) Infected decubitus ulcer Current Visit: Yes Status: Acute Code(s): L89.90 - PRESSURE ULCER OF UNSPECIFIED SITE, UNSPECIFIED STAGE; L08.9 - LOCAL INFECTION OF THE SKIN AND SUBCUTANEOUS TISSUE, UNSP SNOMED Code(s): 367345614 (3) Stage III pressure ulcer of sacral region Current Visit: Yes Status: Acute Code(s): L89.153 - PRESSURE ULCER OF SACRAL REGION, STAGE 3 SNOMED Code(s): 51757553499718 Plan: 1patient presented the hospital with the nonhealing ulcer to the sacral area with pain did have elevated white count concerning for secondary wound infection and cellulitis will need to cover for both gram-positive as well as gram- negative pathogen keep in mind location of this ulcer. 2await surgical debridement and deep culture that will determine the depth of this infection as well. 3patient to be treated with vancomycin pharmacy to dose watch kidney function closely however switch Zosyn to Unasyn to decrease risk of nephrotoxicity. 4local wound care per the wound care. We will follow on clinical condition and cultures to further adjust medication if needed Thank you for this consultation we will follow the patient along with you Dictation was produced using [email or web address] dictation software. please excuse any grammatical, word or spelling errors. Time with Patient: Greater than 30
[2025-03-13] MEDS: buPROPion XL 150 MG TAB.ER.24H PO SCH (08:32)
[2025-03-13] MEDS: METOPROLOL SUCCINATE (ER) 100 MG TAB.ER.24H PO SCH (08:33)
[2025-03-13] MEDS: ATORVASTATIN 40 MG TAB PO SCH (08:33)
[2025-03-13 09:32] LABS: ALT 61 U/L (10-49); AST 63 U/L (14-35); Albumin 2.3 g/dL (3.8-4.9); Albumin/Globulin Ratio 1.05 Ratio (1.60-3.17); Alkaline Phosphatase 416 U/L (41-126); Anion Gap 11.20 mmol/L (4.00-12.00); BUN/Creat Ratio 20.00 Ratio (12.00-20.00); Blood Urea Nitrogen 12.0 mg/dL (9.0-27.0); Calcium 8.0 mg/dL (8.7-10.3); Carbon Dioxide 21.8 mmol/L (21.6-31.8); Chloride 106 mmol/L (96-109); Globulin 2.2 g/dL (1.6-3.3); Glucose 95 mg/dL (70-110); Potassium 4.1 mmol/L (3.5-5.5); Sodium 139 mmol/L (135-145); Total Protein 4.5 g/dL (6.2-8.2)
[2025-03-13 10:13] LABS: Basophils # (A) 0.05 X 10*3/uL (0.00-0.10); Basophils % (A) 0.4 %; Eosinophils # (A) 0.06 X 10*3/uL (0.04-0.35); Eosinophils % (A) 0.4 %; HCT 35.8 % (39.6-50.0); HGB 11.5 g/dL (13.0-17.0); Immature Grans, Automated 1.30 %; Lymphocytes # (A) 1.76 X 10*3/uL (0.90-5.00); Lymphocytes % (A) 12.6 %; MCH 32.5 pg (27.0-32.0); MCHC 32.1 g/dL (32.0-37.0); MCV 101.1 FL (80.0-97.0); Monocytes # (A) 1.46 X 10*3/uL (0.20-1.00); Monocytes % (A) 10.5 %; NRBC Per 100 WBC 0 X 10*3/uL (0.00-0.01); Neutrophils # (A) 10.43 X 10*3/uL (1.80-7.70); Neutrophils % (A) 74.8 %; Platelet Count 429 X 10*3/uL (140-440); RBC 3.54 X 10*6/uL (4.40-5.60); RDW 15.4 % (11.5-14.5); WBC 13.94 X 10*3/uL (4.50-10.00)
--- NOTE | 2025-03-13 11:59 | P.PN ---
Subjective Progress Note Date: 03/13/25 CHIEF COMPLAINT: Infected bilateral decubiti ulcer HISTORY OF PRESENT ILLNESS: The patient is a 85-year-old male admitted for sepsis due to decubiti ulcers. This morning, patient reports he feels excel lent. He was placed on a high-protein high-calorie diet due to pre-existing malnutrition, albumin less than 3.0. ROS: No reports of nausea and vomiting. No Patient had bowel movement on table during surgery.fevers or chills. No new chest pain. No productive sputum PHYSICAL EXAM: VITAL SIGNS: Reviewed CONSTITUTIONAL: Well developed and in no acute distress. EYES: Conjuctivae without sclera icterus. Extraocular movements grossly intact. HEAD, EARS, NOSE, THROAT: Moist buccal mucosa. Head is atraumatic, normocephalic. Hears conversational speech. No nasal drainage. RESPIRATORY: Non-labored respirations and equal bilateral excursions. CARDIOVASCULAR: Palpable 2+ radial pulses. ABDOMEN: Nontender. MUSCULOSKELETAL: No gross deformity of the lower extremities noted. No clubbing. No cyanosis. SKIN: Stage III right trochanteric pressure ulcer and stage III sacral ulcer. NEUROLOGIC: Cranial nerves II through XII grossly intact. No focal or lateralizing signs. PSYCH: Appropriate affect. Alert and oriented to person, place and time. CLINICAL LABS: Reviewed. WBC down from 18,000-13,000. Sodium 133 improved with resolved hyponatremia. LFTs trending down. ASSESSMENT: 1. Stage III right trochanteric pressure ulcer status postdebridement, 4 x 2 cm 2. Stage III sacral pressure ulcer status postdebridement, 4 x 2.5 cm 3. Severe protein malnutrition, albumin less than 2.6 at 2.3. PLAN: 1. Recommend high-protein high-protein high caloric diet, goal protein intake over 80+ grams daily 2. Protein shakes, Ensure max 60 to 90 g daily 3. Wound management team for chronic wound described for outpatient management as well. 4. Deep tissue cultures obtained of right trochanteric and sacral pressure ulcer with cultures pending for antibiotic management. Dictation was produced using [employer] software. Please excuse any grammatical, word or spelling errors. Objective - Vital Signs Vital signs: Vital Signs Temp 97.7 F 03/13/25 07:16 Pulse 98 03/13/25 07:16 Resp 18 03/13/25 07:16 BP 123/63 03/13/25 07:16 Pulse Ox 93 L 03/13/25 07:16 FiO2 Intake & Output 03/12/25 03/13/25 03/13/25 18:59 06:59 18:59 Intake Total 900 240 Output Total 30 Balance 870 240 Weight 79.379 kg 79.379 kg Intake: IV 900 Oral 240 Output: Estimated Blood Loss 30 Other: Voiding Method Urinal Incontinent External Catheter - Labs CBC & Chem 7: 03/13/25 03:05 03/13/25 03:05 Labs: Abnormal Lab Results - Last 24 Hours (Table) 03/13/25 03/13/25 Range/Units 03:05 03:05 WBC 13.94 H (4.50-10.00) X 10*3/uL RBC 3.54 L (4.40-5.60) X 10*6/uL Hgb 11.5 L (13.0-17.0) g/dL Hct 35.8 L (39.6-50.0) % MCV 101.1 H (80.0-97.0) FL MCH 32.5 H (27.0-32.0) pg RDW 15.4 H (11.5-14.5) % MPV 8.9 L (9.5-12.2) FL Immature Gran # 0.18 H (0.00-0.04) X 10*3/uL Neutrophils # 10.43 H (1.80-7.70) X 10*3/uL Monocytes # 1.46 H (0.20-1.00) X 10*3/uL Calcium 8.0 L (8.7-10.3) mg/dL AST 63 H (14-35) U/L ALT 61 H (10-49) U/L Alkaline Phosphatase 416 H (41-126) U/L Total Protein 4.5 L (6.2-8.2) g/dL Albumin 2.3 L (3.8-4.9) g/dL Albumin/Globulin Ratio 1.05 L (1.60-3.17) Ratio Microbiology - Last 24 Hours (Table) 03/11/25 17:28 Gram Stain - Preliminary Buttock Wound Culture - Preliminary 03/11/25 17:51 Blood Culture - Preliminary Blood
[2025-03-13] MEDS: VANCOMYCIN 1,500 MG in SODIUM CHLORIDE 0.9% 500 ML 500 ML IVPB SCH (12:06)
[2025-03-13] MEDS: AMPICILLIN-SULBACTAM 3 GM in SODIUM CHLORIDE 0.9% 100 ML IVPB SCH (12:55)
--- NOTE | 2025-03-13 13:16 | P.PN ---
Subjective Progress Note Date: 03/13/25 Hospital Course: This is a 85-year-old male patient presenting from home with a past medical hi story of essential hypertension for concern of an infected decubitus ulcer with complaints of back pain. Patient is sickly dependent on his roommate but unfortunately is admitted to the hospital. It appears that patient is chronically wheelchair-bound and not much has been returned recently. He is suspecting that his ulcer is infected. He reported that a nurse did look at his ulcer and reported that he needs to present to the ER for further evaluation. He denies having any fevers or chills. He does report back and buttock pain. No prior visits to the hospital Upon arrival to the ED, patient was hemodynamically stable. Labs done showing WBC of 18.33, hemoglobin of 12.9, sodium 133, kidney function within normal limit, total bilirubin 1.8, AST 98, ALT 67, alk phos 487, albumin 2.7. Patient received vancomycin and Dr. Vela was consulted. They recommended wound care consult as well as infectious disease.. Patient lives his friend who is in the 90s and is actually currently admitted for knee infection reportedly. Patient is not interested in rehab placement, ongoing discussions regarding placement. 03/13/2025: Seen examined , no acute events overnight, patient complains of some discomfort at the site of the chronic wound, otherwise no complaints.. . He is afebrile with normal blood pressure, satting well on room air. Leukocytosis improving 13.9, hemoglobin stable 11.5, normal platelet count, sodium normalized 139, normal potassium, creatinine, liver enzymes trending down AST 63, ALT 61, ALP persistently elevated. Patient was switched to Unasyn and continued on vancomycin, wound and blood cultures pending, MRSA swab pending. Discussed with RN Pertinent positives and negatives as discussed above, a complete review of systems was performed and all other systems are negative. Vitals Signs Reviewed. General: [nontoxic], [chronically ill-appearing Derm: [Stage II decubitus ulcer with purulent discharge. Located over the sacrum and over the right buttocks Head: [atraumatic], [normocephalic], [symmetric] Eyes: [EOMI], [no lid lag], [anicteric sclera] Mouth: [no lip lesion], [mucus membranes moist] Cardiovascular: [S1S2 reg], [no murmur] Lungs: [CTA bilateral], [no rhonchi, no rales] , [no accessory muscle use] Abdominal: [soft], [ nontender to palpation], [no guarding], [no appreciable organomegaly] Ext: [no gross muscle atrophy], [no edema], [no contractures] Neuro: [ CN II-XI grossly intact], [no focal neuro deficits] Psych: [Alert], [oriented], [appropriate affect] Assessment and Plan: Infected decubitus ulcer Failure to thrive Protein calorie malnutrition - General Surgery consulted, wound care consulted, infectious disease consulted, appreciate recommendations - Follow-up on blood and blood cultures - Inflammatory markers elevated - Continue vancomycin pharmacy to dose, Zosyn switched to Unasyn 3 g every 6 hours, monitor BMP daily for renal toxicity, monitor CBC daily due to leukocytosis, antibiotics SOT 03/11 - Ordered MRSA swab - PT OT consulted -Nutrition consulted Elevated ALP, liver enzymes, unknown cause -No abdominal pain or tenderness ALT and ALP trending down Hypertension Depression Hyperlipidemia -Continue home Lipitor 40 daily, Wellbutrin 150 daily, BuSpar 5 mg 3 times daily, Prozac 10 mg daily, metoprolol 100 mg daily DVT ppx: Heparin Code status: Full code Anticipated discharge place: TBD Anticipated discharge time: TBD Objective - Vital Signs Vital signs: Vital Signs Temp 97.7 F 03/13/25 07:16 Pulse 98 03/13/25 07:16 Resp 18 03/13/25 07:16 BP 123/63 03/13/25 07:16 Pulse Ox 93 L 03/13/25 07:16 FiO2 Intake & Output 03/12/25 03/13/25 03/13/25 18:59 06:59 18:59 Intake Total 900 240 Output Total 30 Balance 870 240 Weight 79.379 kg 79.379 kg Intake: IV 900 Oral 240 Output: Estimated Blood Loss 30 Other: Voiding Method Urinal Incontinent External Catheter - Labs CBC & Chem 7: 03/13/25 03:05 03/13/25 03:05 Labs: Abnormal Lab Results - Last 24 Hours (Table) 03/13/25 03/13/25 Range/Units 03:05 03:05 WBC 13.94 H (4.50-10.00) X 10*3/uL RBC 3.54 L (4.40-5.60) X 10*6/uL Hgb 11.5 L (13.0-17.0) g/dL Hct 35.8 L (39.6-50.0) % MCV 101.1 H (80.0-97.0) FL MCH 32.5 H (27.0-32.0) pg RDW 15.4 H (11.5-14.5) % MPV 8.9 L (9.5-12.2) FL Immature Gran # 0.18 H (0.00-0.04) X 10*3/uL Neutrophils # 10.43 H (1.80-7.70) X 10*3/uL Monocytes # 1.46 H (0.20-1.00) X 10*3/uL Calcium 8.0 L (8.7-10.3) mg/dL AST 63 H (14-35) U/L ALT 61 H (10-49) U/L Alkaline Phosphatase 416 H (41-126) U/L Total Protein 4.5 L (6.2-8.2) g/dL Albumin 2.3 L (3.8-4.9) g/dL Albumin/Globulin Ratio 1.05 L (1.60-3.17) Ratio Microbiology - Last 24 Hours (Table) 03/11/25 17:28 Gram Stain - Preliminary Buttock Wound Culture - Preliminary 03/11/25 17:51 Blood Culture - Preliminary Blood
--- NOTE | 2025-03-13 15:41 | P.PN ---
Subjective Progress Note Date: 03/13/25 Principal diagnosis: Reason for follow-up is infected sacral and right trochanteric pressure ulcer Patient is a 85-year-old male with a past medical history significant for hypertension has been brought to the hospital concerning for infected sacral pressure ulcer patient apparently is dependent on his roommate for his care as the patient is chronically wheelchair-bound and has been brought in to hospital concerning for worsening wound to the right trochanteric and sacral area status post surgical debridement. On today's evaluation that is 03/13/2025, the patient continues to be afebrile, the patient is on room air and breathing comfortably, the Pt denies having any chest pain or cough, the patient denies having any abdominal pain no vomiting or any diarrhea has been reported by the nursing staff. Patient white count is 13.94, creatinine 0.6 Wound culture currently pending Objective - Vital Signs Vital signs: Vital Signs Temp 98.4 F 03/13/25 13:48 Pulse 97 03/13/25 13:48 Resp 18 03/13/25 13:48 BP 116/68 03/13/25 13:48 Pulse Ox 97 03/13/25 13:48 FiO2 Intake & Output 03/12/25 03/13/25 03/13/25 18:59 06:59 18:59 Intake Total 900 240 Output Total 30 Balance 870 240 Weight 79.379 kg 79.379 kg Intake: IV 900 Oral 240 Output: Estimated Blood Loss 30 Other: Voiding Method Urinal Incontinent External Catheter - Exam GENERAL DESCRIPTION: An elderly male lying in bed in no distress RESPIRATORY SYSTEM: Unlabored breathing , decreased breath sounds at bases HEART: S1 S2 regular rate and rhythm , ABDOMEN: Soft , no tenderness EXTREMITIES: No edema feet - Labs CBC & Chem 7: 03/13/25 03:05 03/13/25 03:05 Labs: Abnormal Lab Results - Last 24 Hours (Table) 03/13/25 03/13/25 Range/Units 03:05 03:05 WBC 13.94 H (4.50-10.00) X 10*3/uL RBC 3.54 L (4.40-5.60) X 10*6/uL Hgb 11.5 L (13.0-17.0) g/dL Hct 35.8 L (39.6-50.0) % MCV 101.1 H (80.0-97.0) FL MCH 32.5 H (27.0-32.0) pg RDW 15.4 H (11.5-14.5) % MPV 8.9 L (9.5-12.2) FL Immature Gran # 0.18 H (0.00-0.04) X 10*3/uL Neutrophils # 10.43 H (1.80-7.70) X 10*3/uL Monocytes # 1.46 H (0.20-1.00) X 10*3/uL Calcium 8.0 L (8.7-10.3) mg/dL AST 63 H (14-35) U/L ALT 61 H (10-49) U/L Alkaline Phosphatase 416 H (41-126) U/L Total Protein 4.5 L (6.2-8.2) g/dL Albumin 2.3 L (3.8-4.9) g/dL Albumin/Globulin Ratio 1.05 L (1.60-3.17) Ratio Microbiology - Last 24 Hours (Table) 03/11/25 17:28 Gram Stain - Preliminary Buttock Wound Culture - Preliminary 03/11/25 17:51 Blood Culture - Preliminary Blood Assessment and Plan (1) Leukocytosis Current Visit: Yes Status: Acute Code(s): D72.829 - ELEVATED WHITE BLOOD CELL COUNT, UNSPECIFIED SNOMED Code(s): 932696550 (2) Infected decubitus ulcer Current Visit: Yes Status: Acute Code(s): L89.90 - PRESSURE ULCER OF U NSPECIFIED SITE, UNSPECIFIED STAGE; L08.9 - LOCAL INFECTION OF THE SKIN AND SUBCUTANEOUS TISSUE, UNSP SNOMED Code(s): 166134554 (3) Stage III pressure ulcer of sacral region Current Visit: Yes Status: Acute Code(s): L89.153 - PRESSURE ULCER OF SACRAL REGION, STAGE 3 SNOMED Code(s): 96694731569095 Plan: 1patient presented the hospital with the nonhealing ulcer to the sacral area with pain did have elevated white count concerning for secondary wound infection and cellulitis will need to cover for both gram-positive as well as gram- negative pathogen keep in mind location of this ulcer. 2patient is status post surgical debridement and deep culture of the sacral and right trochanteric pressure ulcer 3patient currently being treated with vancomycin pharmacy to dose and Unasyn while waiting for the culture to finalize 4local wound care per the wound care. Dictation was produced using [employer] dictation software. please excuse any grammatical, word or spelling errors.
[2025-03-13] MEDS: VANCOMYCIN TROUGH DUE 1 EACH MISC MISCELLANE ONE (21:00)
[2025-03-14 09:09] LABS: Basophils # (A) 0.07 X 10*3/uL (0.00-0.10); Basophils % (A) 0.5 %; Eosinophils # (A) 0.25 X 10*3/uL (0.04-0.35); Eosinophils % (A) 1.9 %; HCT 35.1 % (39.6-50.0); HGB 10.9 g/dL (13.0-17.0); Immature Grans, Automated 1.80 %; Lymphocytes # (A) 1.92 X 10*3/uL (0.90-5.00); Lymphocytes % (A) 14.6 %; MCH 31.7 pg (27.0-32.0); MCHC 31.1 g/dL (32.0-37.0); MCV 102.0 FL (80.0-97.0); Monocytes # (A) 1.39 X 10*3/uL (0.20-1.00); Monocytes % (A) 10.6 %; NRBC Per 100 WBC 0 X 10*3/uL (0.00-0.01); Neutrophils # (A) 9.25 X 10*3/uL (1.80-7.70); Neutrophils % (A) 70.6 %; Platelet Count 406 X 10*3/uL (140-440); RBC 3.44 X 10*6/uL (4.40-5.60); RDW 15.8 % (11.5-14.5); WBC 13.11 X 10*3/uL (4.50-10.00)
[2025-03-14 10:13] LABS: ALT 51 U/L (10-49); AST 55 U/L (14-35); Albumin 2.3 g/dL (3.8-4.9); Albumin/Globulin Ratio 1.15 Ratio (1.60-3.17); Alkaline Phosphatase 381 U/L (41-126); Anion Gap 10.90 mmol/L (4.00-12.00); BUN/Creat Ratio 25.00 Ratio (12.00-20.00); Blood Urea Nitrogen 17.5 mg/dL (9.0-27.0); Calcium 7.7 mg/dL (8.7-10.3); Carbon Dioxide 22.1 mmol/L (21.6-31.8); Chloride 108 mmol/L (96-109); Globulin 2.0 g/dL (1.6-3.3); Glucose 115 mg/dL (70-110); Potassium 4.4 mmol/L (3.5-5.5); Sodium 141 mmol/L (135-145); Total Protein 4.3 g/dL (6.2-8.2)
--- NOTE | 2025-03-14 14:05 | P.PN ---
Subjective Progress Note Date: 03/14/25 Hospital Course: This is a 85-year-old male patient presenting from home with a past medical hi story of essential hypertension for concern of an infected decubitus ulcer with complaints of back pain. Patient is sickly dependent on his roommate but unfortunately is admitted to the hospital. It appears that patient is chronically wheelchair-bound and not much has been returned recently. He is suspecting that his ulcer is infected. He reported that a nurse did look at his ulcer and reported that he needs to present to the ER for further evaluation. He denies having any fevers or chills. He does report back and buttock pain. No prior visits to the hospital Upon arrival to the ED, patient was hemodynamically stable. Labs done showing WBC of 18.33, hemoglobin of 12.9, sodium 133, kidney function within normal limit, total bilirubin 1.8, AST 98, ALT 67, alk phos 487, albumin 2.7. Patient received vancomycin and Dr. Vela was consulted. They recommended wound care consult as well as infectious disease.. Patient lives his friend who is in the 90s and is actually currently admitted for knee infection reportedly. Patient is not interested in rehab placement, ongoing discussions regarding placement. Patient underwent bedside debridement with deep cultures obtained on 03/12, growing E. coli, preliminary. Patient was switched to Unasyn and continued on vancomycin, 03/14/2025: Seen and examined at bedside, overnight patient had a bowel movement that he was not aware of, normally he feels urge to go. He does not have any associated symptoms, not in pain. No nausea, vomiting, sensation changes. On exam he does have preserved sensation and he is growing, he states that he felt when he was getting cleaned. He is afebrile, blood pressure 98/58, 95% on room air. Leukocytosis trending down 13.1, hemoglobin stable 10.9, normal sodium, potassium, creatinine, AST and ALT trending down 55 and 51 accordingly. Wound cultures growing E. coli, preliminary, MRSA pending. Discussed with RN Pertinent positives and negatives as discussed above, a complete review of sy stems was performed and all other systems are negative. Vitals Signs Reviewed. General: [nontoxic], [chronically ill-appearing Derm: [Stage II decubitus ulcer with purulent discharge. Located over the sacrum and over the right buttocks Head: [atraumatic], [normocephalic], [symmetric] Eyes: [EOMI], [no lid lag], [anicteric sclera] Mouth: [no lip lesion], [mucus membranes moist] Cardiovascular: [S1S2 reg], [no murmur] Lungs: [CTA bilateral], [no rhonchi, no rales] , [no accessory muscle use] Abdominal: [soft], [ nontender to palpation], [no guarding], [no appreciable organomegaly] Ext: [no gross muscle atrophy], [no edema], [no contractures] Neuro: [ CN II-XI grossly intact], [no focal neuro deficits] Psych: [Alert], [oriented], [appropriate affect] Assessment and Plan: Infected decubitus ulcer, wound cultures growing E. coli preliminary Failure to thrive Protein calorie malnutrition - General Surgery consulted, wound care consulted, infectious disease consulted, appreciate recommendations - Follow-up on blood and blood cultures - Inflammatory markers elevated - Continue vancomycin pharmacy to dose, Zosyn switched to Unasyn 3 g every 6 hours, monitor BMP daily for renal toxicity, monitor CBC daily due to leukocytosis, antibiotics SOT 03/11 - Ordered MRSA swab - PT OT consulted, patient will need placement -Nutrition consulted Elevated ALP, liver enzymes, unknown cause -No abdominal pain or tenderness ALT and ALP trending down Hypertension Depression Hyperlipidemia -Continue home Lipitor 40 daily, Wellbutrin 150 daily, BuSpar 5 mg 3 times daily, Prozac 10 mg daily, metoprolol 100 mg daily DVT ppx: Heparin Code status: Full code Anticipated discharge place: TBD Anticipated discharge time: TBD Objective - Vital Signs Vital signs: Vital Signs Temp 98.1 F 03/14/25 07:25 Pulse 87 03/14/25 07:25 Resp 17 03/14/25 07:25 BP 98/58 03/14/25 07:25 Pulse Ox 91 L 03/14/25 07:25 FiO2 Intake & Output 03/13/25 03/14/25 03/14/25 18:59 06:59 18:59 Output Total 400 300 Balance -400 -300 Output: Urine 400 300 Other: Voiding Method Incontinent Incontinent Toilet External Catheter External Catheter # Voids 1 # Bowel Movements 1 - Labs CBC & Chem 7: 03/14/25 03:06 07/05/25 03:06 Labs: Abnormal Lab Results - Last 24 Hours (Table) 03/14/25 03/14/25 Range/Units 03:06 03:06 WBC 13.11 H (4.50-10.00) X 10*3/uL RBC 3.44 L (4.40-5.60) X 10*6/uL Hgb 10.9 L (13.0-17.0) g/dL Hct 35.1 L (39.6-50.0) % MCV 102.0 H (80.0-97.0) FL MCHC 31.1 L (32.0-37.0) g/dL RDW 15.8 H (11.5-14.5) % MPV 9.0 L (9.5-12.2) FL Immature Gran # 0.23 H (0.00-0.04) X 10*3/uL Neutrophils # 9.25 H (1.80-7.70) X 10*3/uL Monocytes # 1.39 H (0.20-1.00) X 10*3/uL BUN/Creatinine Ratio 25.00 H (12.00-20.00) Ratio Glucose 115 H (70-110) mg/dL Calcium 7.7 L (8.7-10.3) mg/dL AST 55 H (14-35) U/L ALT 51 H (10-49) U/L Alkaline Phosphatase 381 H (41-126) U/L Total Protein 4.3 L (6.2-8.2) g/dL Albumin 2.3 L (3.8-4.9) g/dL Albumin/Globulin Ratio 1.15 L (1.60-3.17) Ratio Microbiology - Last 24 Hours (Table) 03/12/25 18:30 Gram Stain - Preliminary Other - Other Wound Culture - Preliminary Escherichia coli 03/11/25 17:51 Blood Culture - Preliminary Blood 03/11/25 17:28 Gram Stain - Preliminary Buttock Wound Culture - Preliminary Escherichia coli Morganella morganii sp nicolasonii 03/11/25 17:28 Anaerobic Culture - Final Buttock Bacteroides ovatus Bacteroides thetaiotaomicron
--- NOTE | 2025-03-14 14:42 | P.PN ---
Subjective Progress Note Date: 03/14/25 CHIEF COMPLAINT: Infected bilateral decubiti ulcer HISTORY OF PRESENT ILLNESS: The patient is a 85-year-old male admitted for sepsis due to decubiti ulcers. He is status post debridement of right troch anteric and sacral stage III pressure ulcers, 03/12/2025. Patient has not been out of bed. He has no complaints. Cultures are returning from his procedure 03/12/2025. Additionally, patient reports eating a third of his meals. Patient encouraged to eat high-protein diet for optimal recovery. ROS: No reports of nausea and vomiting. No fevers or chills. No new chest pain. No productive sputum. Patient had bowel movement during this admission previously documented 03/12/2025. PHYSICAL EXAM: VITAL SIGNS: Reviewed CONSTITUTIONAL: Well developed and in no acute distress. EYES: Conjuctivae without sclera icterus. Extraocular movements grossly intact. HEAD, EARS, NOSE, THROAT: Moist buccal mucosa. Head is atraumatic, normocephalic. Hears conversational speech. No nasal drainage. RESPIRATORY: Non-labored respirations and equal bilateral excursions. CARDIOVASCULAR: Palpable 2+ radial pulses. ABDOMEN: Nontender. MUSCULOSKELETAL: No gross deformity of the lower extremities noted. No clubbing. No cyanosis. SKIN: Stage III right trochanteric pressure ulcer and stage III sacral ulcer. NEUROLOGIC: Cranial nerves II through XII grossly intact. No focal or lateralizing signs. PSYCH: Appropriate affect. Alert and oriented to person, place and time. CLINICAL LABS: Reviewed. WBC down from 14-13,000. Hemoglobin down 12.4-10.9. ASSESSMENT: 1. Stage III right trochanteric pressure ulcer status postdebridement, 4 x 2 cm 2. Stage III sacral pressure ulcer status postdebridement, 4 x 2.5 cm 3. Severe protein malnutrition, albumin less than 2.6 at 2.3. PLAN: 1. Patient encouraged to address his protein on his tray including chicken beef etc. 2. Goal protein intake over 90 g daily advised for optimal recovery. 3. Agree with [facility] for wound care management per wound care team. 4. Monitor hemoglobin. 5. Physical therapy and Occupational Therapy for rehabilitation needs. Dictation was produced using [employer] software. Please excuse any grammatical, word or spelling errors. Objective - Vital Signs Vital signs: Vital Signs Temp 98.1 F 03/14/25 07:25 Pulse 87 03/14/25 07:25 Resp 17 03/14/25 07:25 BP 98/58 03/14/25 07:25 Pulse Ox 91 L 03/14/25 07:25 FiO2 Intake & Output 03/13/25 03/14/25 03/14/25 18:59 06:59 18:59 Output Total 400 300 Balance -400 -300 Output: Urine 400 300 Other: Voiding Method Incontinent Incontinent Toilet External Catheter External Catheter # Voids 1 # Bowel Movements 1 - Labs CBC & Chem 7: 03/14/25 03:06 03/14/25 03:06 Labs: Abnormal Lab Results - Last 24 Hours (Table) 03/14/25 03/14/25 Range/Units 03:06 03:06 WBC 13.11 H (4.50-10.00) X 10*3/uL RBC 3.44 L (4.40-5.60) X 10*6/uL Hgb 10.9 L (13.0-17.0) g/dL Hct 35.1 L (39.6-50.0) % MCV 102.0 H (80.0-97.0) FL MCHC 31.1 L (32.0-37.0) g/dL RDW 15.8 H (11.5-14.5) % MPV 9.0 L (9.5-12.2) FL Immature Gran # 0.23 H (0.00-0.04) X 10*3/uL Neutrophils # 9.25 H (1.80-7.70) X 10*3/uL Monocytes # 1.39 H (0.20-1.00) X 10*3/uL BUN/Creatinine Ratio 25.00 H (12.00-20.00) Ratio Glucose 115 H (70-110) mg/dL Calcium 7.7 L (8.7-10.3) mg/dL AST 55 H (14-35) U/L ALT 51 H (10-49) U/L Alkaline Phosphatase 381 H (41-126) U/L Total Protein 4.3 L (6.2-8.2) g/dL Albumin 2.3 L (3.8-4.9) g/dL Albumin/Globulin Ratio 1.15 L (1.60-3.17) Ratio Microbiology - Last 24 Hours (Table) 03/12/25 18:30 Gram Stain - Preliminary Other - Other Wound Culture - Preliminary Escherichia coli 03/11/25 17:51 Blood Culture - Preliminary Blood 03/11/25 17:28 Gram Stain - Preliminary Buttock Wound Culture - Preliminary Escherichia coli Morganella morganii sp deisyi 03/11/25 17:28 Anaerobic Culture - Final Buttock Bacteroides ovatus Bacteroides thetaiotaomicron
--- NOTE | 2025-03-14 15:14 | P.PN ---
Subjective Progress Note Date: 03/14/25 Principal diagnosis: Reason for follow-up is infected sacral and right trochanteric pressure ulcer Patient is a 85-year-old male with a past medical history significant for hypertension has been brought to the hospital concerning for infected sacral pressure ulcer patient apparently is dependent on his roommate for his care as the patient is chronically wheelchair-bound and has been brought in to hospital concerning for worsening wound to the right trochanteric and sacral area status post surgical debridement. On today's evaluation that is 03/14/2024, patient did have a temperature of 98 F this morning and denies having any chills, patient is on room air and b reathing comfortably no chest pain or cough, the patient did not have any nausea vomiting abdominal pain or any diarrhea. Patient white count is 13.11, creatinine 0.7 culture currently growing E. coli Morganella bacteroids Objective - Vital Signs Vital signs: Vital Signs Temp 98.1 F 03/14/25 07:25 Pulse 87 03/14/25 07:25 Resp 17 03/14/25 07:25 BP 98/58 03/14/25 07:25 Pulse Ox 91 L 03/14/25 07:25 FiO2 Intake & Output 03/13/25 03/14/25 03/14/25 18:59 06:59 18:59 Output Total 400 300 Balance -400 -300 Output: Urine 400 300 Other: Voiding Method Incontinent Incontinent Toilet External Catheter External Catheter # Voids 1 # Bowel Movements 1 - Exam GENERAL DESCRIPTION: An elderly male lying in bed in no distress RESPIRATORY SYSTEM: Unlabored breathing , decreased breath sounds at bases HEART: S1 S2 regular rate and rhythm , ABDOMEN: Soft , no tenderness EXTREMITIES: No edema feet - Labs CBC & Chem 7: 03/14/25 03:06 03/14/25 03:06 Labs: Abnormal Lab Results - Last 24 Hours (Table) 03/14/25 03/14/25 Range/Units 03:06 03:06 WBC 13.11 H (4.50-10.00) X 10*3/uL RBC 3.44 L (4.40-5.60) X 10*6/uL Hgb 10.9 L (13.0-17.0) g/dL Hct 35.1 L (39.6-50.0) % MCV 102.0 H (80.0-97.0) FL MCHC 31.1 L (32.0-37.0) g/dL RDW 15.8 H (11.5-14.5) % MPV 9.0 L (9.5-12.2) FL Immature Gran # 0.23 H (0.00-0.04) X 10*3/uL Neutrophils # 9.25 H (1.80-7.70) X 10*3/uL Monocytes # 1.39 H (0.20-1.00) X 10*3/uL BUN/Creatinine Ratio 25.00 H (12.00-20.00) Ratio Glucose 115 H (70-110) mg/dL Calcium 7.7 L (8.7-10.3) mg/dL AST 55 H (14-35) U/L ALT 51 H (10-49) U/L Alkaline Phosphatase 381 H (41-126) U/L Total Protein 4.3 L (6.2-8.2) g/dL Albumin 2.3 L (3.8-4.9) g/dL Albumin/Globulin Ratio 1.15 L (1.60-3.17) Ratio Microbiology - Last 24 Hours (Table) 03/12/25 18:30 Gram Stain - Preliminary Other - Other Wound Culture - Preliminary Escherichia coli 03/11/25 17:51 Blood Culture - Preliminary Blood 03/11/25 17:28 Gram Stain - Preliminary Buttock Wound Culture - Preliminary Escherichia coli Morganella morganii sp sibonii 03/11/25 17:28 Anaerobic Culture - Final Buttock Bacteroides ovatus Bacteroides thetaiotaomicron Assessment and Plan (1) Leukocytosis Current Visit: Yes Status: Acute Code(s): D72.829 - ELEVATED WHITE BLOOD CELL COUNT, UNSPECIFIED SNOMED Code(s): 431475632 (2) Infected decubitus ulcer Current Visit: Yes Status: Acute Code(s): L89.90 - PRESSURE ULCER OF UNSPECIFIED SITE, UNSPECIFIED STAGE; L08.9 - LOCAL INFECTION OF THE SKIN AND SUBCUTANEOUS TISSUE, UNSP SNOMED Code(s): 773948825 (3) Stage III pressure ulcer of sacral region Current Visit: Yes Status: Acute Code(s): L89.153 - PRESSURE ULCER OF SACRAL REGION, STAGE 3 SNOMED Code(s): 78089641672123 Plan: 1patient presented the hospital with the nonhealing ulcer to the sacral area with pain did have elevated white count concerning for secondary wound infection and cellulitis will need to cover for both gram-positive as well as gram- negative pathogen keep in mind location of this ulcer. 2patient is status post surgical debridement and deep culture of the sacral and right trochanteric pressure ulcer 3patient local culture current growing E. coli and Morganella bacteroids and no MRSA 4will discontinue vancomycin and Unasyn start the patient on Zosyn 3.375 g every 8 hours discharge antibiotic on the basis of final sensitivity Dictation was produced using [employer] dictation software. please excuse any grammatical, word or spelling errors.
[2025-03-14] MEDS: PIPERACILLIN-TAZOBACTAM 3.375 GM in SODIUM CHLORIDE 0.9% 100 ML IVPB SCH (15:54)
[2025-03-15 09:00] LABS: Basophils # (A) 0.14 X 10*3/uL (0.00-0.10); Basophils % (A) 0.9 %; Eosinophils # (A) 0.40 X 10*3/uL (0.04-0.35); Eosinophils % (A) 2.5 %; HCT 36.5 % (39.6-50.0); HGB 11.7 g/dL (13.0-17.0); Immature Grans, Automated 4.80 %; Lymphocytes # (A) 2.57 X 10*3/uL (0.90-5.00); Lymphocytes % (A) 16.3 %; MCH 32.0 pg (27.0-32.0); MCHC 32.1 g/dL (32.0-37.0); MCV 99.7 FL (80.0-97.0); Monocytes # (A) 1.35 X 10*3/uL (0.20-1.00); Monocytes % (A) 8.6 %; NRBC Per 100 WBC 0.02 X 10*3/uL (0.00-0.01); Neutrophils # (A) 10.56 X 10*3/uL (1.80-7.70); Neutrophils % (A) 66.9 %; Platelet Count 388 X 10*3/uL (140-440); RBC 3.66 X 10*6/uL (4.40-5.60); RDW 15.7 % (11.5-14.5); WBC 15.77 X 10*3/uL (4.50-10.00)
[2025-03-15 09:51] LABS: ALT 51 U/L (10-49); AST 61 U/L (14-35); Albumin 2.2 g/dL (3.8-4.9); Albumin/Globulin Ratio 1.00 Ratio (1.60-3.17); Alkaline Phosphatase 430 U/L (41-126); Anion Gap 9.10 mmol/L (4.00-12.00); BUN/Creat Ratio 30.17 Ratio (12.00-20.00); Blood Urea Nitrogen 18.1 mg/dL (9.0-27.0); Calcium 8.0 mg/dL (8.7-10.3); Carbon Dioxide 22.9 mmol/L (21.6-31.8); Chloride 107 mmol/L (96-109); Globulin 2.2 g/dL (1.6-3.3); Glucose 95 mg/dL (70-110); Potassium 4.5 mmol/L (3.5-5.5); Sodium 139 mmol/L (135-145); Total Protein 4.4 g/dL (6.2-8.2)
--- NOTE | 2025-03-15 12:52 | P.PN ---
Subjective Progress Note Date: 03/15/25 Hospital Course: This is a 85-year-old male patient presenting from home with a past medical hi story of essential hypertension for concern of an infected decubitus ulcer with complaints of back pain. Patient is sickly dependent on his roommate but unfortunately is admitted to the hospital. It appears that patient is chronically wheelchair-bound and not much has been returned recently. He is suspecting that his ulcer is infected. He reported that a nurse did look at his ulcer and reported that he needs to present to the ER for further evaluation. He denies having any fevers or chills. He does report back and buttock pain. No prior visits to the hospital Upon arrival to the ED, patient was hemodynamically stable. Labs done showing WBC of 18.33, hemoglobin of 12.9, sodium 133, kidney function within normal limit, total bilirubin 1.8, AST 98, ALT 67, alk phos 487, albumin 2.7. Patient received vancomycin and Dr. Vela was consulted. They recommended wound care consult as well as infectious disease.. Patient lives his friend who is in the 90s and is actually currently admitted for knee infection reportedly. Patient is not interested in rehab placement, ongoing discussions regarding placement. Patient underwent bedside debridement with deep cultures obtained on 03/12, growing E. coli, preliminary. Patient was switched to Unasyn and continued on vancomycin, MRSA negative, patient was switched to Zosyn due to wound cultures growing E. coli, Morganella, bacteroid 03/15/2025: Seen examined bedside, no acute events overnight 03/14/2025: overnight patient had a bowel movement that he was not aware of, normally he feels urge to go. He does not have any associated symptoms, not in pain. No nausea, vomiting, sensation changes. On exam he does have preserved sensation and he is growing, he states that he felt when he was getting cleaned 03/15/2025: Seen examined at bedside, no acute events overnight. Patient remains afebrile with stable heart rate and blood pressure, satting well on room air. WBC slightly up 15.7, hemoglobin stable 11.7, sodium, potassium, bicarb, creatinine WNL, AST and ALT all stable. Patient had several more episode of soft bowel movements without biliary admit, C. difficile sent and negative. Discussed with RN. Pending final cultures, ID recommendations regarding outpatient antibiotics, patient needs placement, previously mentioned that he would like to go home although it does not seem to be realistic because he is very debilitated and cannot take care of himself. Pertinent positives and negatives as discussed above, a complete review of systems was performed and all other systems are negative. Vitals Signs Reviewed. General: , [chronically ill-appearing Derm: [Stage II decubitus ulcer with purulent discharge. Located over the sacrum and over the right buttocks Head: [atraumatic], [normocephalic], [symmetric] Eyes: [EOMI], [no lid lag], [anicteric sclera] Mouth: [no lip lesion], [mucus membranes moist] Cardiovascular: [S1S2 reg], [no murmur] Lungs: [CTA bilateral], [no rhonchi, no rales] , [no accessory muscle use] Abdominal: [soft], [ nontender to palpation], [no guarding], [no appreciable organomegaly] Ext: [no gross muscle atrophy], [no edema], [no contractures] Neuro: [ CN II-XI grossly intact], [no focal neuro deficits] Psych: [Alert], [oriented], [appropriate affect] Assessment and Plan: Infected decubitus ulcer, wound cultures growing E. coli, bacteroids, Morganella Failure to thrive Protein calorie malnutrition - General Surgery consulted, wound care consulted, infectious disease consulted, appreciate recommendations - Follow-up on blood and blood cultures - Inflammatory markers elevated - Vancomycin stopped, continue Zosyn 3.375 every 8 hours, antibiotics SOT 03/11 - PT OT consulted, patient will need placement -Nutrition consulted Elevated ALP, liver enzymes, unknown cause -No abdominal pain or tenderness ALT and ALP trending down Hypertension Depression Hyperlipidemia -Continue home Lipitor 40 daily, Wellbutrin 150 daily, BuSpar 5 mg 3 times daily, Prozac 10 mg daily, metoprolol 100 mg daily DVT ppx: Heparin Code status: Full code Anticipated discharge place: TBD Anticipated discharge time: TBD Objective - Vital Signs Vital signs: Vital Signs Temp 98.1 F 03/15/25 07:11 Pulse 92 03/15/25 07:11 Resp 18 03/15/25 07:11 BP 132/76 03/15/25 07:11 Pulse Ox 93 L 03/15/25 07:11 FiO2 Intake & Output 03/14/25 03/15/25 03/15/25 18:59 06:59 18:59 Output Total 500 351 Balance -500 -351 Output: Urine 500 350 Stool 1 Other: Voiding Method Toilet External Catheter External Catheter # Voids 1 - Labs CBC & Chem 7: 03/15/25 05:38 03/15/25 05:38 Labs: Abnormal Lab Results - Last 24 Hours (Table) 03/15/25 03/15/25 Range/Units 05:38 05:38 WBC 15.77 H (4.50-10.00) X 10*3/uL RBC 3.66 L (4.40-5.60) X 10*6/uL Hgb 11.7 L (13.0-17.0) g/dL Hct 36.5 L (39.6-50.0) % MCV 99.7 H (80.0-97.0) FL RDW 15.7 H (11.5-14.5) % MPV 9.3 L (9.5-12.2) FL Immature Gran # 0.75 H (0.00-0.04) X 10*3/uL Neutrophils # 10.56 H (1.80-7.70) X 10*3/uL Monocytes # 1.35 H (0.20-1.00) X 10*3/uL Eosinophils # 0.40 H (0.04-0.35) X 10*3/uL Basophils # 0.14 H (0.00-0.10) X 10*3/uL NRBC/100 WBC Diff 0.02 H (0.00-0.01) X 10*3/uL BUN/Creatinine Ratio 30.17 H (12.00-20.00) Ratio Calcium 8.0 L (8.7-10.3) mg/dL AST 61 H (14-35) U/L ALT 51 H (10-49) U/L Alkaline Phosphatase 430 H (41-126) U/L Total Protein 4.4 L (6.2-8.2) g/dL Albumin 2.2 L (3.8-4.9) g/dL Albumin/Globulin Ratio 1.00 L (1.60-3.17) Ratio Microbiology - Last 24 Hours (Table) 03/12/25 18:30 Gram Stain - Final Other - Other Wound Culture - Final Escherichia coli 03/11/25 17:51 Blood Culture - Preliminary Blood 03/11/25 17:28 Gram Stain - Final Buttock Wound Culture - Final Escherichia coli Morganella morganii sp gerri
[2025-03-15] MEDS ORDERED: ZINC OXIDE PASTE (Z-GUARD) 1 APPLIC TOPICAL PRN (15:50)
--- NOTE | 2025-03-15 15:55 | P.PN ---
Subjective Progress Note Date: 03/15/25 Principal diagnosis: Reason for follow-up is infected sacral and right trochanteric pressure ulcer Patient is a 85-year-old male with a past medical history significant for hypertension has been brought to the hospital concerning for infected sacral pressure ulcer patient apparently is dependent on his roommate for his care as the patient is chronically wheelchair-bound and has been brought in to hospital concerning for worsening wound to the right trochanteric and sacral area status post surgical debridement. On today's evaluation that is 03/15/2025, Patient is afebrile patient is currently on room air and denies having any shortness of breath, the patient den ies any chest pain or cough, the patient denies any nausea vomiting did not have any abdominal pain and no diarrhea. Patient white count is 15.77, creatinine 0.5 culture with E. coli Morganella and bacteroids Objective - Vital Signs Vital signs: Vital Signs Temp 98.3 F 03/15/25 14:58 Pulse 83 03/15/25 14:58 Resp 18 03/15/25 14:58 BP 120/60 03/15/25 14:58 Pulse Ox 96 03/15/25 14:58 FiO2 Intake & Output 03/14/25 03/15/25 03/15/25 18:59 06:59 18:59 Output Total 500 351 Balance -500 -351 Output: Urine 500 350 Stool 1 Other: Voiding Method Toilet External Catheter External Catheter # Voids 1 - Exam GENERAL DESCRIPTION: An elderly male lying in bed in no distress RESPIRATORY SYSTEM: Unlabored breathing , decreased breath sounds at bases HEART: S1 S2 regular rate and rhythm , ABDOMEN: Soft , no tenderness EXTREMITIES: No edema feet - Labs CBC & Chem 7: 03/15/25 05:38 03/15/25 05:38 Labs: Abnormal Lab Results - Last 24 Hours (Table) 03/15/25 03/15/25 Range/Units 05:38 05:38 WBC 15.77 H (4.50-10.00) X 10*3/uL RBC 3.66 L (4.40-5.60) X 10*6/uL Hgb 11.7 L (13.0-17.0) g/dL Hct 36.5 L (39.6-50.0) % MCV 99.7 H (80.0-97.0) FL RDW 15.7 H (11.5-14.5) % MPV 9.3 L (9.5-12.2) FL Immature Gran # 0.75 H (0.00-0.04) X 10*3/uL Neutrophils # 10.56 H (1.80-7.70) X 10*3/uL Monocytes # 1.35 H (0.20-1.00) X 10*3/uL Eosinophils # 0.40 H (0.04-0.35) X 10*3/uL Basophils # 0.14 H (0.00-0.10) X 10*3/uL NRBC/100 WBC Diff 0.02 H (0.00-0.01) X 10*3/uL BUN/Creatinine Ratio 30.17 H (12.00-20.00) Ratio Calcium 8.0 L (8.7-10.3) mg/dL AST 61 H (14-35) U/L ALT 51 H (10-49) U/L Alkaline Phosphatase 430 H (41-126) U/L Total Protein 4.4 L (6.2-8.2) g/dL Albumin 2.2 L (3.8-4.9) g/dL Albumin/Globulin Ratio 1.00 L (1.60-3.17) Ratio Microbiology - Last 24 Hours (Table) 03/12/25 18:30 Anaerobic Culture - Preliminary Other - Other 03/12/25 18:30 Gram Stain - Final Other - Other Wound Culture - Final Escherichia coli 03/11/25 17:51 Blood Culture - Preliminary Blood 03/11/25 17:28 Gram Stain - Final Buttock Wound Culture - Final Escherichia coli Morganella morganii sp deisyi Assessment and Plan (1) Leukocytosis Current Visit: Yes Status: Acute Code(s): D72.829 - ELEVATED WHITE BLOOD CELL COUNT, UNSPECIFIED SNOMED Code(s): 182543780 (2) Infected decubitus ulcer Current Visit: Yes Status: Acute Code(s): L89.90 - PRESSURE ULCER OF UNSPECIFIED SITE, UNSPECIFIED STAGE; L08.9 - LOCAL INFECTION OF THE SKIN AND SUBCUTANEOUS TISSUE, UNSP SNOMED Code(s): 369585393 (3) Stage III pressure ulcer of sacral region Current Visit: Yes Status: Acute Code(s): L89.153 - PRESSURE ULCER OF SACRAL REGION, STAGE 3 SNOMED Code(s): 12630937946402 Plan: 1patient presented the hospital with the nonhealing ulcer to the sacral area with pain did have elevated white count concerning for secondary wound infection and cellulitis will need to cover for both gram-positive as well as gram- negative pathogen keep in mind location of this ulcer. 2patient is status post surgical debridement and deep culture of the sacral and right trochanteric pressure ulcer 3patient local culture current growing E. coli and Morganella bacteroids and no MRSA 4patient is currently being treated with Zosyn 3.375 g every 8 hours will need PICC line and a course of IV antibiotic on discharge Dictation was produced using [employer] dictation software. please excuse any grammatical, word or spelling errors. Time with Patient: Less than 30
[2025-03-15] MEDS: CHOLESTYRAMINE RESIN 4 GM PACKET PO SCH (18:51)
--- NOTE | 2025-03-15 19:42 | P.PN ---
Subjective Progress Note Date: 03/15/25 CHIEF COMPLAINT: Infected bilateral decubiti ulcer HISTORY OF PRESENT ILLNESS: The patient is a 85-year-old male admitted for sepsis due to decubiti ulcers. He is status post debridement of right troch anteric and sacral stage III pressure ulcers, 03/12/2025. No reports of abdominal pain. He is having multiple bowel movements. Cultures are now back. He is inquiring about discharge. He has been able to sit up at bedside. ROS: No reports of nausea and vomiting. No fevers or chills. No new chest pain. No productive sputum. PHYSICAL EXAM: VITAL SIGNS: Reviewed CONSTITUTIONAL: Well developed and in no acute distress. EYES: Conjuctivae without sclera icterus. Extraocular movements grossly intact. HEAD, EARS, NOSE, THROAT: Moist buccal mucosa. Head is atraumatic, normocephalic. Hears conversational speech. No nasal drainage. RESPIRATORY: Non-labored respirations and equal bilateral excursions. CARDIOVASCULAR: Palpable 2+ radial pulses. ABDOMEN: Nontender. MUSCULOSKELETAL: No gross deformity of the lower extremities noted. No clubbing. No cyanosis. SKIN: Stage III right trochanteric pressure ulcer and stage III sacral ulcer. NEUROLOGIC: Cranial nerves II through XII grossly intact. No focal or lateralizing signs. PSYCH: Appropriate affect. Alert and oriented to person, place and time. CLINICAL LABS: Reviewed. WBC down from 14-13,000 now trending upward 15,000. LFTs elevated trending upward again MICRO: Deep tissue cultures from 03/12/2025 show E. coli sensitive to all antibiotics. ASSESSMENT: 1. Stage III right trochanteric pressure ulcer status postdebridement, 4 x 2 cm 2. Stage III sacral pressure ulcer status postdebridement, 4 x 2.5 cm 3. Severe protein malnutrition, albumin less than 2.6 at 2.3. 4. Elevated liver enzymes PLAN: 1. Patient is inquiring about discharge however discharge needs pending antibiotic management including home rehab. 2. Recommend outpatient management at wound care center for chronic wound. 3. Patient educated on adequate protein with a high-protein diet over 90 g daily but benefit overall recovery. Dictation was produced using [email or web address] dictation software. Please excuse any grammatical, word or spelling errors. Objective - Vital Signs Vital signs: Vital Signs Temp 98.3 F 03/15/25 14:58 Pulse 83 03/15/25 14:58 Resp 18 03/15/25 14:58 BP 120/60 03/15/25 14:58 Pulse Ox 96 03/15/25 14:58 FiO2 Intake & Output 03/15/25 03/15/25 03/16/25 06:59 18:59 06:59 Output Total 351 500 Balance -351 -500 Output: Urine 350 500 Stool 1 Other: Voiding Method External Catheter External Catheter # Voids 1 # Bowel Movements 5 - Labs CBC & Chem 7: 03/15/25 05:38 03/15/25 05:38 Labs: Abnormal Lab Results - Last 24 Hours (Table) 03/15/25 03/15/25 Range/Units 05:38 05:38 WBC 15.77 H (4.50-10.00) X 10*3/uL RBC 3.66 L (4.40-5.60) X 10*6/uL Hgb 11.7 L (13.0-17.0) g/dL Hct 36.5 L (39.6-50.0) % MCV 99.7 H (80.0-97.0) FL RDW 15.7 H (11.5-14.5) % MPV 9.3 L (9.5-12.2) FL Immature Gran # 0.75 H (0.00-0.04) X 10*3/uL Neutrophils # 10.56 H (1.80-7.70) X 10*3/uL Monocytes # 1.35 H (0.20-1.00) X 10*3/uL Eosinophils # 0.40 H (0.04-0.35) X 10*3/uL Basophils # 0.14 H (0.00-0.10) X 10*3/uL NRBC/100 WBC Diff 0.02 H (0.00-0.01) X 10*3/uL BUN/Creatinine Ratio 30.17 H (12.00-20.00) Ratio Calcium 8.0 L (8.7-10.3) mg/dL AST 61 H (14-35) U/L ALT 51 H (10-49) U/L Alkaline Phosphatase 430 H (41-126) U/L Total Protein 4.4 L (6.2-8.2) g/dL Albumin 2.2 L (3.8-4.9) g/dL Albumin/Globulin Ratio 1.00 L (1.60-3.17) Ratio Microbiology - Last 24 Hours (Table) 03/12/25 18:30 Anaerobic Culture - Preliminary Other - Other 03/12/25 18:30 Gram Stain - Final Other - Other Wound Culture - Final Escherichia coli 03/11/25 17:51 Blood Culture - Preliminary Blood 03/11/25 17:28 Gram Stain - Final Buttock Wound Culture - Final Escherichia coli Morganella morganii sp gerri
--- NOTE | 2025-03-16 11:49 | P.PN ---
Subjective Progress Note Date: 03/16/25 This is an 85-year-old patient being seen in the ER exam 30 for a nonhealing ulceration to the sacrum. Patient has a stage III pressure ulcer to the sacrum measuring approximately 3 x 3.5 x 0.3 cm with significant amount of slough and nonviable tissue present the ulceration does have an odiferous odor. And purulent drainage to the site. No granulation seen throughout no tunneling or undermining noted. Wound edges are attached to the wound base. Excoriation noted to periwound. Past medical history significant for hypertension 03/16/2025: Patient underwent a surgical debridement. Review Of Systems: Constitutional: No fever, no chills, no night sweats. No weight change. No weakness, fatigue or lethargy. No daytime sleepiness. Integumentary:reports wounds, no lesions. No rash or pruritus. No unusual bruising. No change in hair or nails. Physical exam: General Appearance: Alert, cooperative, no distress, appears stated age. Skin: See HPI all other Skin color, texture, tugor normal, no rashes or lesions. Neurologic: Alert oriented x3 Assessment: 1. Stage III pressure ulcer sacrum 2. Stage III Right hip Plan: 1. Apply absorptive silver rope moistened saline gauze dry gauze and bordered foam. May change the outer dressing as needed if soiled. Maintain the absorptive silver rope in the wound bed only change on Sunday. Patient would benefit from advanced wound care and wound care setting. Patient states that he is unable to come to the wound care center upon discharge. We would be happy to see him if he is able to make it. Thank you for the consultation any questions please contact the wound care center DNP note has been reviewed and discussed with Dr. Overton and the impression and plan of care has been directed as dictated. Objective - Vital Signs Vital signs: Vital Signs Temp 97.6 F 03/16/25 07:23 Pulse 99 03/16/25 07:23 Resp 18 03/16/25 07:23 BP 125/67 03/16/25 07:23 Pulse Ox 94 L 03/16/25 01:25 FiO2 Intake & Output 03/15/25 03/16/25 03/16/25 18:59 06:59 18:59 Output Total 500 353 Balance -500 -353 Output: Urine 500 350 Stool 3 Other: Voiding Method External Catheter External Catheter Incontinent External Catheter # Voids 1 1 # Bowel Movements 5 1 - Labs CBC & Chem 7: 03/15/25 05:38 03/15/25 05:38 Labs: Microbiology - Last 24 Hours (Table) 03/12/25 18:30 Anaerobic Culture - Preliminary Other - Other 03/12/25 18:30 Gram Stain - Final Other - Other Wound Culture - Final Escherichia coli Assessment and Plan (1) Stage III pressure ulcer of sacral region Current Visit: Yes Status: Acute Code(s): L89.153 - PRESSURE ULCER OF SACRAL REGION, STAGE 3 SNOMED Code(s): 22759613501782 (2) Stage III pressure ulcer of right hip Current Visit: Yes Status: Acute Code(s): L89.213 - PRESSURE ULCER OF RIGHT HIP, STAGE 3 SNOMED Code(s): 05280168481678
[2025-03-16] MEDS: LOPERAMIDE 2 MG CAP PO PRN (12:23)
--- NOTE | 2025-03-16 16:04 | P.PN ---
Subjective Progress Note Date: 03/16/25 Patient was seen and examined. Reports some pain in his buttocks. No other complaints. Antibiotics include Zosyn 3.75 g IV TID. Discussed with MARIA GUADALUPE Puri to order PICC. No new labs done today. General: non toxic, no distress, appears at stated age Derm: warm, dry Head: atraumatic, normocephalic, symmetric Eyes: EOMI, no lid lag, anicteric sclera Mouth: no lip lesion, mucus membranes moist Cardiovascular: S1S2 reg, no murmur Lungs: Decreased BS bilateral, no rhonchi, no rales , no accessory muscle use Ext: no gross muscle atrophy, no edema, no contractures Neuro: no focal neuro deficits Psych: Alert, oriented, appropriate affect Based on my assessment of this patient, this patient meets a high complexity level of care. Infected decubitus ulcer: Wound cultures growing E. coli, bacteroids, M organella. Continue Zosyn 3.75g IV TID. Plans for PICC line. ID, Surgery and Wound care on board. Failure to thrive with protein calorie malnutrition: Dietitian consulted. High protein/calorie diet ordered. PT and OT consulted, plans for SNF. Discussed with case management. Transaminitis: Unknown etiology. Benign physical exam. DC Lipitor. Monitor. Hypertension: Metoprolol 100 mg PO QD. Depression: Prozac 10 mg PO QD. Wellbutrin XL 150 mg PO QD. Hyperlipidemia: Hold Lipitor as above. CODE STATUS: FULL CODE DVT Prophylaxis: Heparin SQ GI Prophylaxis: Designated medical POA if patient is not able to make medical decisions for themselves: I have reviewed the following residential property consultant notes: Surgery, Wound care. I have reviewed the results of the following tests: I have ordered the following tests: I have discussed the care of this patient with the following independent historian: Case management. I have independently interpreted the following test below: I have discussed the management of this patient with the following physician: Dr. Frazier. Objective - Vital Signs Vital signs: Vital Signs Temp 97.6 F 03/16/25 07:23 Pulse 99 03/16/25 07:23 Resp 18 03/16/25 07:23 BP 125/67 03/16/25 07:23 Pulse Ox 94 L 03/16/25 01:25 FiO2 Intake & Output 07/03/0403/16/25 03/16/25 18:59 06:59 18:59 Output Total 500 353 Balance -500 -353 Output: Urine 500 350 Stool 3 Other: Voiding Method External Catheter External Catheter Incontinent External Catheter # Voids 1 1 # Bowel Movements 5 1 - Labs CBC & Chem 7: 03/15/25 05:38 03/15/25 05:38 Labs: Microbiology - Last 24 Hours (Table) 03/12/25 18:30 Anaerobic Culture - Final Other - Other Wallyia nohemi
--- NOTE | 2025-03-16 16:41 | P.PN ---
Subjective Progress Note Date: 03/16/25 CHIEF COMPLAINT: Infected bilateral decubiti ulcer HISTORY OF PRESENT ILLNESS: The patient is a 85-year-old male admitted for sepsis due to decubiti ulcers. He is status post debridement of right troch anteric and sacral stage III pressure ulcers, 03/12/2025. Patient is tolerating his diet. No reports of abdominal pain. He is currently on wound care management of his wounds. He is having bowel movements. No fevers. ROS: No reports of nausea and vomiting. No fevers or chills. No new chest pain. No productive sputum. PHYSICAL EXAM: VITAL SIGNS: Reviewed CONSTITUTIONAL: Well developed and in no acute distress. EYES: Conjuctivae without sclera icterus. Extraocular movements grossly intact. HEAD, EARS, NOSE, THROAT: Moist buccal mucosa. Head is atraumatic, normocephalic. Hears conversational speech. No nasal drainage. RESPIRATORY: Non-labored respirations and equal bilateral excursions. CARDIOVASCULAR: Palpable 2+ radial pulses. ABDOMEN: Nontender. MUSCULOSKELETAL: No gross deformity of the lower extremities noted. No clubbing. No cyanosis. SKIN: Stage III right trochanteric pressure ulcer and stage III sacral ulcer. NEUROLOGIC: Cranial nerves II through XII grossly intact. No focal or lateralizing signs. PSYCH: Appropriate affect. Alert and oriented to person, place and time. CLINICAL LABS: Reviewed. No new labs today. MICRO: Deep tissue cultures from 03/12/2025 show E. coli sensitive to all antibiotics. New organism Finegoldia with culture sensitivities pending. ASSESSMENT: 1. Stage III right trochanteric pressure ulcer status postdebridement, 4 x 2 cm 2. Stage III sacral pressure ulcer status postdebridement, 4 x 2.5 cm 3. Severe protein malnutrition, albumin less than 2.6 at 2.3. 4. Elevated liver enzymes 5. Inadequate protein intake PLAN: 1. I have reiterated to the patient of nutritional goals over 90 g daily for optimal recovery. Patient will continue use protein shakes as a supplement. 2. Will defer wound care management to wound care team. 3. Patient reports transfer to rehab. 4. General Surgery service will sign off. Dictation was produced using [employer] dictation software. Please excuse any grammatical, word or spelling errors. Objective - Vital Signs Vital signs: Vital Signs Temp 98.1 F 07/07/25 15:51 Pulse 89 03/16/25 15:51 Resp 18 03/16/25 15:51 BP 117/66 03/16/25 15:51 Pulse Ox 95 03/16/25 15:51 FiO2 Intake & Output 03/15/25 03/16/25 03/16/25 18:59 06:59 18:59 Output Total 500 353 450 Balance -500 -353 -450 Output: Urine 500 350 450 Stool 3 Other: Voiding Method External Catheter External Catheter Incontinent External Catheter # Voids 1 1 # Bowel Movements 5 1 - Labs CBC & Chem 7: 03/15/25 05:38 03/15/25 05:38 Labs: Microbiology - Last 24 Hours (Table) 03/12/25 18:30 Anaerobic Culture - Final Other - Other Finegoldia magna
--- NOTE | 2025-03-17 14:22 | P.DS ---
Providers Date of admission: 03/11/25 17:48 Expected date of discharge: 03/17/25 Attending physician: Ty Cotton Consults: 03/11/25 17:45 Consult Physician Routine Consulting Provider: Teresa Arana Consult Reason/Comments: infected decubitus ulcer Do you want consulting provider notified?: Yes 03/11/25 19:54 Consult Physician Routine Consulting Provider: Mandi Frazier Consult Reason/Comments: Sepsis Do you want consulting provider notified?: Yes, Notify in am Primary care physician: Physician Nonstaff Hospital Course: 85 year old M with PMH of HTN, Depression, HLD presents to the ED for concerns for infected decubitus ulcer. In the ED he underwent extensive evaluation. Patient was hemodynamically stable. Labs done showing WBC of 18.33, hemoglobin of 12.9, sodium 133, kidney function within normal limit, total bilirubin 1.8, AST 98, ALT 67, alk phos 487, albumin 2.7. Patient received vancomycin and Dr. Arana was consulted. ID consulted as well, Zosyn added. Underwent deep tissue cultures obtained of right trochanteric and sacral pressure ulcer with cultures growing E. coli, Morganella morganii, Bacteroides ovatus + thetaiotaomicron and Finegoldia magna. He did have some diarrhea, C. diff was negative, started on Questran and Imodium PRN. 03/17 Patient was seen and examined. Reports some pain in his buttocks. No other complaints. Antibiotics include Zosyn 3.75 g IV TID. Plans for PICC line. Accepted to SNF on discharge. Discharge Plans: 84 doses of Zosyn on discharge. Plans for discharge to SNF if able to obtain PICC line. Follow up with PCP within 1-2 days, Wound Care center and Dr. Frazier within 1 week of discharge. General: non toxic, no distress, appears at stated age Derm: warm, dry Head: atraumatic, normocephalic, symmetric Eyes: EOMI, no lid lag, anicteric sclera Mouth: no lip lesion, mucus membranes moist Cardiovascular: S1S2 reg, no murmur Lungs: Decreased BS bilateral, no rhonchi, no rales , no accessory muscle use Ext: no gross muscle atrophy, no edema, no contractures Neuro: no focal neuro deficits Psych: Alert, oriented, appropriate affect Discharge Diagnosis: Sepsis secondary to infected decubitus ulcer Diarrhea Macrocytic anemia Failure to thrive with protein calorie malnutrition Transaminitis Hypertension Depression Hyperlipidemia This complex discharge took 35 minutes to complete and coordinate. Patient Condition at Discharge: Stable Plan - Discharge Summary New Discharge Prescriptions: New Piperacillin-Tazobactam [Zosyn] 3.375 gm IVPB Q8HR #84 each Loperamide [Imodium] 2 mg PO QID PRN cap PRN Reason: Diarrhea Cholestyramine Resin [Questran Packet] 4 gm PO BID@1000,1800 packet Cyclobenzaprine [Flexeril] 10 mg PO HS PRN tab PRN Reason: Muscle Spasm buPROPion XL [Wellbutrin XL] 150 mg PO DAILY tab Continue Metoprolol Succinate (ER) [Toprol XL] 100 mg PO DAILY Multivitamins, Thera [Multivitamin (formulary)] 1 tab PO DAILY Retinavites 2 1 tab PO BID FLUoxetine HCL [PROzac] 10 mg PO BID busPIRone HCl [Buspar] 5 mg PO TID Aspirin EC [Ecotrin Low Dose] 81 mg PO DAILY #0 Changed Acetaminophen Tab [Tylenol] 325 mg PO BID PRN #0 PRN Reason: Fever And/Or Mild Pain Discontinued Atorvastatin [Lipitor] 40 mg PO DAILY Cyclobenzaprine [Flexeril] 5 mg PO HS PRN PRN Reason: Muscle Spasm Discharge Medication List FLUoxetine HCL [PROzac] 10 mg PO BID 03/11/25 [History] Metoprolol Succinate (ER) [Toprol XL] 100 mg PO DAILY 03/11/25 [History] busPIRone HCl [Buspar] 5 mg PO TID 03/11/25 [History] Multivitamins, Thera [Multivitamin (formulary)] 1 tab PO DAILY 03/12/25 [History] Retinavites 2 1 tab PO BID 03/12/25 [History] Acetaminophen Tab [Tylenol] 325 mg PO BID PRN #0 03/17/25 [Rx] Aspirin EC [Ecotrin Low Dose] 81 mg PO DAILY #0 03/17/25 [Rx] Cholestyramine Resin [Questran Packet] 4 gm PO BID@1000,1800 packet 03/17/25 [Rx] Cyclobenzaprine [Flexeril] 10 mg PO HS PRN tab 03/17/25 [Rx] Loperamide [Imodium] 2 mg PO QID PRN cap 03/17/25 [Rx] Piperacillin-Tazobactam [Zosyn] 3.375 gm IVPB Q8HR #84 each 03/17/25 [Rx] buPROPion XL [Wellbutrin XL] 150 mg PO DAILY tab 03/17/25 [Rx] Follow up Appointment(s)/Referral(s): Paul Travis, [NON-STAFF] - As Needed Nonstaff,Physician [Primary Care Provider] - 1-2 days Mandi Frazier MD [STAFF PHYSICIAN] - 1 Week Wound Center,[facility] [NON-STAFF] - 1 Week Ambulatory/Diagnostic Orders: Basic Metabolic Panel [LAB.AMB] Location: None Selected C Reactive Protein [LAB.AMB] Location: None Selected Complete Blood Count w/diff [LAB.AMB] Location: None Selected Erythrocyte Sedimentation Rate [LAB.AMB] Location: None Selected Discharge Disposition: TRANSFER TO SNF/ECF
--- NOTE | 2025-03-17 16:59 | P.PN ---
Subjective Progress Note Date: 03/16/25 Principal diagnosis: Reason for follow-up is infected sacral and right trochanteric pressure ulcer Patient is a 85-year-old male with a past medical history significant for hypertension has been brought to the hospital concerning for infected sacral pressure ulcer patient apparently is dependent on his roommate for his care as the patient is chronically wheelchair-bound and has been brought in to hospital concerning for worsening wound to the right trochanteric and sacral area status post surgical debridement. On today's evaluation that is 03/16/2025, patient has been afebrile, patient is breathing comfortably and is currently on room air, patient denies having any chest pain and cough, patient denies nausea vomiting or any worsening diarrhea and no abdominal pain. No new lab has been obtained today. Objective - Vital Signs Vital signs: Vital Signs Temp 97.6 F 03/16/25 07:23 Pulse 99 03/16/25 07:23 Resp 18 03/16/25 07:23 BP 125/67 03/16/25 07:23 Pulse Ox 94 L 03/16/25 01:25 FiO2 Intake & Output 03/15/25 03/16/25 03/16/25 18:59 06:59 18:59 Output Total 500 353 Balance -500 -353 Output: Urine 500 350 Stool 3 Other: Voiding Method External Catheter External Catheter Incontinent External Catheter # Voids 1 1 # Bowel Movements 5 1 - Exam GENERAL DESCRIPTION: An elderly male lying in bed in no distress RESPIRATORY SYSTEM: Unlabored breathing , decreased breath sounds at bases HEART: S1 S2 regular rate and rhythm , ABDOMEN: Soft , no tenderness EXTREMITIES: No edema feet - Labs CBC & Chem 7: 03/15/25 05:38 03/15/25 05:38 Labs: Microbiology - Last 24 Hours (Table) 03/12/25 18:30 Anaerobic Culture - Preliminary Other - Other Assessment and Plan (1) Leukocytosis Current Visit: Yes Status: Acute Code(s): D72.829 - ELEVATED WHITE BLOOD CELL COUNT, UNSPECIFIED SNOMED Code(s): 974523461 (2) Infected decubitus ulcer Current Visit: Yes Status: Acute Code(s): L89.90 - PRESSURE ULCER OF UNSPECIFIED SITE, UNSPECIFIED STAGE; L08.9 - LOCAL INFECTION OF THE SKIN AND SUBCUTANEOUS TISSUE, UNSP SNOMED Code(s): 817328398 (3) Stage III pressure ulcer of sacral region Current Visit: Yes Status: Acute Code(s): L89.153 - PRESSURE ULCER OF SACRAL REGION, STAGE 3 SNOMED Code(s): 95973529696896 Plan: 1patient presented the hospital with the nonhealing ulcer to the sacral area with pain did have elevated white count concerning for secondary wound infection and cellulitis will need to cover for both gram-positive as well as gram- negative pathogen keep in mind location of this ulcer. 2patient is status post surgical debridement and deep culture of the sacral and right trochanteric pressure ulcer 3patient local culture current growing E. coli and Morganella bacteroids and no MRSA 4patient is currently being treated with Zosyn 3.375 g every 8 hours currently waiting for PICC line placement for outpatient antibiotic 5diarrhea stool for C. difficile is negative on Questran will add Imodium for symptomatic relief Dictation was produced using [employer] dictation software. please excuse any grammatical, word or spelling errors. Time with Patient: Less than 30
--- NOTE | 2025-03-17 17:00 | P.PN ---
Subjective Progress Note Date: 03/17/25 Principal diagnosis: Reason for follow-up is infected sacral and right trochanteric pressure ulcer Patient is a 85-year-old male with a past medical history significant for hypertension has been brought to the hospital concerning for infected sacral pressure ulcer patient apparently is dependent on his roommate for his care as the patient is chronically wheelchair-bound and has been brought in to hospital concerning for worsening wound to the right trochanteric and sacral area status post surgical debridement. On today's evaluation that is 03/17/2025, Patient is afebrile this morning patient denies having any chest pain she is breathing more comfortably he is d own to 35% FiO2 occasional cough no abdominal pain or diarrhea. Patient white count 6.34, creatinine 0.75 Objective - Vital Signs Vital signs: Vital Signs Temp 97.8 F 03/17/25 12:10 Pulse 78 03/17/25 12:10 Resp 14 03/17/25 12:10 BP 119/67 03/17/25 12:10 Pulse Ox 94 L 03/17/25 12:10 FiO2 Intake & Output 03/16/25 03/17/25 03/17/25 18:59 06:59 18:59 Intake Total 1000 Output Total 450 400 Balance -450 600 Weight 79.379 kg Intake: Oral 1000 Output: Urine 450 400 Other: Voiding Method Incontinent External Catheter External Catheter # Voids 1 2 # Bowel Movements 1 1 1 - Exam GENERAL DESCRIPTION: An elderly male lying in bed in no distress RESPIRATORY SYSTEM: Unlabored breathing , decreased breath sounds at bases HEART: S1 S2 regular rate and rhythm , ABDOMEN: Soft , no tenderness EXTREMITIES: No edema feet - Labs CBC & Chem 7: 03/15/25 05:38 03/15/25 05:38 Labs: Microbiology - Last 24 Hours (Table) 03/11/25 17:51 Blood Culture - Final Blood 03/12/25 18:30 Anaerobic Culture - Final Other - Other Finegoldia magna Assessment and Plan (1) Leukocytosis Current Visit: Yes Status: Acute Code(s): D72.829 - ELEVATED WHITE BLOOD CELL COUNT, UNSPECIFIED SNOMED Code(s): 162167911 (2) Infected decubitus ulcer Current Visit: Yes Status: Acute Code(s): L89.90 - PRESSURE ULCER OF UNSPECIFIED SITE, UNSPECIFIED STAGE; L08.9 - LOCAL INFECTION OF THE SKIN AND SUBCUTANEOUS TISSUE, UNSP SNOMED Code(s): 742854420 (3) Stage III pressure ulcer of sacral region Current Visit: Yes Status: Acute Code(s): L89.153 - PRESSURE ULCER OF SACRAL REGION, STAGE 3 SNOMED Code(s): 32765356810360 Plan: 1patient presented the hospital with the nonhealing ulcer to the sacral area with pain did have elevated white count concerning for secondary wound infection and cellulitis will need to cover for both gram-positive as well as gram- negative pathogen keep in mind location of this ulcer. 2patient is status post surgical debridement and deep culture of the sacral and right trochanteric pressure ulcer 3patient local culture current growing E. coli and Morganella bacteroids and no MRSA 4patient did have a PICC line placement he will continue with Zosyn for 4-week course keeping in mind up he did have extensive deep infection in the close outpatient follow-up Dictation was produced using [employer] dictation software. please excuse any grammatical, word or spelling errors. Time with Patient: Less than 30
[2025-03-18 03:45] LABS: HCT 32.8 % (39.6-50.0); HGB 10.7 g/dL (13.0-17.0); MCH 32.6 pg (27.0-32.0); MCHC 32.6 g/dL (32.0-37.0); MCV 100.0 fL (80.0-97.0); Platelet Count 378 10*3/uL (140-440); RBC 3.28 10*6/uL (4.40-5.60); RDW 16.2 % (11.5-14.5); WBC 14.73 10*3/uL (4.50-10.00)
[2025-03-18 04:09] LABS: ALT 48 U/L (4-49); AST 46 U/L (17-59); African American GFR (CKD) >90 (>60 ml/min/1.73 sqM); Albumin 2.0 g/dL (3.5-5.0); Albumin/Globulin Ratio 1.0; Alkaline Phosphatase 375 U/L (38-126); Anion Gap 4 mmol/L; Blood Urea Nitrogen 19 mg/dL (9-20); Calcium 8.4 mg/dL (8.4-10.2); Carbon Dioxide 27 mmol/L (22-30); Chloride 104 mmol/L (98-107); Globulin 2.1 g/dL; Glucose 102 mg/dL (74-99); Non-African American GFR(CKD) >90 (>60 ml/min/1.73 sqM); Potassium 4.3 mmol/L (3.5-5.1); Sodium 135 mmol/L (137-145); Total Protein 4.1 g/dL (6.3-8.2)
[2025-03-18 09:31] VITALS: BP 131/72; PULSE 97; RESP 18; TEMP 97.6
--- NOTE | 2025-03-18 11:22 | P.DS ---
Providers Date of admission: 03/11/25 17:48 Expected date of discharge: 03/18/25 Attending physician: Ty Cotton Consults: 03/11/25 17:45 Consult Physician Routine Consulting Provider: Teresa Arana Consult Reason/Comments: infected decubitus ulcer Do you want consulting provider notified?: Yes 03/11/25 19:54 Consult Physician Routine Consulting Provider: Mandi Frazier Consult Reason/Comments: Sepsis Do you want consulting provider notified?: Yes, Notify in am Primary care physician: Physician Nonstaff Hospital Course: 85 year old M with PMH of HTN, Depression, HLD presents to the ED for concerns for infected decubitus ulcer. In the ED he underwent extensive evaluation. Patient was hemodynamically stable. Labs done showing WBC of 18.33, hemoglobin of 12.9, sodium 133, kidney function within normal limit, total bilirubin 1.8, AST 98, ALT 67, alk phos 487, albumin 2.7. Patient received vancomycin and Dr. Arana was consulted. ID consulted as well, Zosyn added. Underwent deep tissue cultures obtained of right trochanteric and sacral pressure ulcer with cultures growing E. coli, Morganella morganii, Bacteroides ovatus + thetaiotaomicron and Finegoldia magna. He did have some diarrhea, C. diff was negative, started on Questran and Imodium PRN. 03/17 Patient was seen and examined. Reports some pain in his buttocks. No other complaints. Antibiotics include Zosyn 3.75 g IV TID. Plans for PICC line. Accepted to SNF on discharge. 03/18 Patient was seen and examined. PICC line delayed but completed today. No complaints. CBC and CMP significant for WBC 14.73, RBC 3.28, Hg 10.7, Hct 32.8, MCV 100, Na 135, Cr 0.59, glu 102, alk phos 375, alb 2. Discharge Plans: 84 doses of Zosyn on discharge. Plans for discharge to SNF after PICC line. Follow up with PCP within 1-2 days, Wound Care center and Dr. Frazier within 1 week of discharge. General: non toxic, no distress, appears at stated age Derm: warm, dry Head: atraumatic, normocephalic, symmetric Eyes: EOMI, no lid lag, anicteric sclera Mouth: no lip lesion, mucus membranes moist Cardiovascular: S1S2 reg, no murmur Lungs: Decreased BS bilateral, no rhonchi, no rales , no accessory muscle use Ext: no gross muscle atrophy, no edema, no contractures Neuro: no focal neuro deficits Psych: Alert, oriented, appropriate affect Discharge Diagnosis: Sepsis secondary to infected decubitus ulcer Diarrhea Macrocytic anemia Failure to thrive with protein calorie malnutrition Transaminitis Hypertension Depression Hyperlipidemia This complex discharge took 35 minutes to complete and coordinate. Patient Condition at Discharge: Stable Plan - Discharge Summary New Discharge Prescriptions: New Piperacillin-Tazobactam [Zosyn] 3.375 gm IVPB Q8HR #84 each Loperamide [Imodium] 2 mg PO QID PRN cap PRN Reason: Diarrhea Cholestyramine Resin [Questran Packet] 4 gm PO BID@1000,1800 packet Cyclobenzaprine [Flexeril] 10 mg PO HS PRN tab PRN Reason: Muscle Spasm buPROPion XL [Wellbutrin XL] 150 mg PO DAILY tab Continue Metoprolol Succinate (ER) [Toprol XL] 100 mg PO DAILY Multivitamins, Thera [Multivitamin (formulary)] 1 tab PO DAILY Retinavites 2 1 tab PO BID FLUoxetine HCL [PROzac] 10 mg PO BID busPIRone HCl [Buspar] 5 mg PO TID Aspirin EC [Ecotrin Low Dose] 81 mg PO DAILY #0 Changed Acetaminophen Tab [Tylenol] 325 mg PO BID PRN #0 PRN Reason: Fever And/Or Mild Pain Discontinued Atorvastatin [Lipitor] 40 mg PO DAILY Cyclobenzaprine [Flexeril] 5 mg PO HS PRN PRN Reason: Muscle Spasm Discharge Medication List FLUoxetine HCL [PROzac] 10 mg PO BID 03/11/25 [History] Metoprolol Succinate (ER) [Toprol XL] 100 mg PO DAILY 03/11/25 [History] busPIRone HCl [Buspar] 5 mg PO TID 03/11/25 [History] Multivitamins, Thera [Multivitamin (formulary)] 1 tab PO DAILY 03/12/25 [History] Retinavites 2 1 tab PO BID 03/12/25 [History] Acetaminophen Tab [Tylenol] 325 mg PO BID PRN #0 03/17/25 [Rx] Aspirin EC [Ecotrin Low Dose] 81 mg PO DAILY #0 03/17/25 [Rx] Cholestyramine Resin [Questran Packet] 4 gm PO BID@1000,1800 packet 03/17/25 [Rx] Cyclobenzaprine [Flexeril] 10 mg PO HS PRN tab 03/17/25 [Rx] Loperamide [Imodium] 2 mg PO QID PRN cap 03/17/25 [Rx] Piperacillin-Tazobactam [Zosyn] 3.375 gm IVPB Q8HR #84 each 03/17/25 [Rx] buPROPion XL [Wellbutrin XL] 150 mg PO DAILY tab 03/17/25 [Rx] Follow up Appointment(s)/Referral(s): Paul Travis, [NON-STAFF] - As Needed Nonstaff,Physician [Primary Care Provider] - 1-2 days Wound Center[facility] [NON-STAFF] - 1 Week Mandi Frazier MD [STAFF PHYSICIAN] - 1 Week Ambulatory/Diagnostic Orders: Basic Metabolic Panel [LAB.AMB] Location: None Selected C Reactive Protein [LAB.AMB] Location: None Selected Complete Blood Count w/diff [LAB.AMB] Location: None Selected Erythrocyte Sedimentation Rate [LAB.AMB] Location: None Selected Discharge Disposition: TRANSFER TO SNF/ECF
--- NOTE | 2025-03-18 11:30 | XR ---
EXAMINATION TYPE: XR chest 1V portable DATE OF EXAM: 03/18/2025 11:17 AM COMPARISON: None CLINICAL INDICATION: Male, 85 years old with history of low O2 sat; [facility] TECHNIQUE: XR chest 1V portable Frontal view of the chest. FINDINGS: Lungs/Pleura:r masslike opacity along the right upper lung wall measuring 8.9 x 4.4 cm. There is no e vidence of pleural effusion, focal consolidation, or pneumothorax. Pulmonary vascularity: Unremarkable. Heart/mediastinum: Cardiomediastinal silhouette is unremarkable. Musculoskeletal: No acute osseous pathology. Midline sternotomy wires are noted. Other findings: None Lines/Tubes: Right-sided PICC line with distal tip at the cavoatrial junction. IMPRESSION: Right upper lateral chest wall mass further evaluation with cross-sectional imaging recommended. Right PICC in appropriate position. [facility], , 03/18/2025 11:28 AM
--- NOTE | 2025-03-19 08:37 | P.PN ---
Subjective Progress Note Date: 03/18/25 Principal diagnosis: Reason for follow-up is infected sacral and right trochanteric pressure ulcer Patient is a 85-year-old male with a past medical history significant for hypertension has been brought to the hospital concerning for infected sacral pressure ulcer patient apparently is dependent on his roommate for his care as the patient is chronically wheelchair-bound and has been brought in to hospital concerning for worsening wound to the right trochanteric and sacral area status post surgical debridement. On today's evaluation that is 03/18/2025,the patient denies any fever or any chills, patient is breathing comfortably on room air, the patient denies chest pain shortness of breath and no significant cough, patient denies abdominal pain, no nausea vomiting or diarrhea. Patient white count is down to 14.73, creatinine 0.59 Objective - Vital Signs Vital signs: Vital Signs Temp 97.6 F 03/18/25 08:14 Pulse 97 03/18/25 08:14 Resp 18 03/18/25 08:14 BP 131/72 03/18/25 08:14 Pulse Ox 91 L 03/18/25 08:14 FiO2 Intake & Output 03/17/25 03/18/25 03/18/25 18:59 06:59 18:59 Intake Total 1080 Output Total 450 850 410 Balance -450 230 -410 Weight 79.379 kg Intake: Oral 1080 Output: Urine 450 850 410 Other: Voiding Method External Catheter External Catheter External Catheter # Voids 1 # Bowel Movements 1 2 1 - Exam GENERAL DESCRIPTION: An elderly male lying in bed in no distress RESPIRATORY SYSTEM: Unlabored breathing , decreased breath sounds at bases HEART: S1 S2 regular rate and rhythm , ABDOMEN: Soft , no tenderness EXTREMITIES: No edema feet - Labs CBC & Chem 7: 03/18/25 02:50 03/18/25 02:50 Labs: Abnormal Lab Results - Last 24 Hours (Table) 03/18/25 03/18/25 Range/Units 02:50 02:50 WBC 14.73 H (4.50-10.00) 10*3/uL RBC 3.28 L (4.40-5.60) 10*6/uL Hgb 10.7 L (13.0-17.0) g/dL Hct 32.8 L (39.6-50.0) % MCV 100.0 H (80.0-97.0) fL MCH 32.6 H (27.0-32.0) pg RDW 16.2 H (11.5-14.5) % MPV 8.4 L (9.5-12.2) fL Sodium 135 L (137-145) mmol/L Creatinine 0.59 L (0.66-1.25) mg/dL Glucose 102 H (74-99) mg/dL Alkaline Phosphatase 375 H (38-126) U/L Total Protein 4.1 L (6.3-8.2) g/dL Albumin 2.0 L (3.5-5.0) g/dL Assessment and Plan (1) Leukocytosis Status: Acute Code(s): D72.829 - ELEVATED WHITE BLOOD CELL COUNT, UNSPECIFIED SNOMED Code(s): 107950116 (2) Infected decubitus ulcer Status: Acute Code(s): L89.90 - PRESSURE ULCER OF UNSPECIFIED SITE, UNSPECIFIED STAGE; L08.9 - LOCAL INFECTION OF THE SKIN AND SUBCUTANEOUS TISSUE, UNSP SNOMED Code(s): 786957646 (3) Stage III pressure ulcer of sacral region Status: Acute Code(s): L89.153 - PRESSURE ULCER OF SACRAL REGION, STAGE 3 SNOMED Code(s): 99965898079645 Plan: 1patient presented the hospital with the nonhealing ulcer to the sacral area with pain did have elevated white count concerning for secondary wound infection and cellulitis will need to cover for both gram-positive as well as gram- negative pathogen keep in mind location of this ulcer. 2patient is status post surgical debridement and deep culture of the sacral and right trochanteric pressure ulcer 3patient local culture current growing E. coli and Morganella bacteroids and no MRSA 4patient did have a PICC line placement patient has been advised Zosyn for 4- week course because of his deep infection and close outpatient follow-up alexandru gallegos waiting for placement hopefully getting discharged to [facility] today Dictation was produced using [employer] dictation software. please excuse any grammatical, word or spelling errors. Time with Patient: Less than 30
--- NOTE | 2025-04-04 16:16 | P.OP ---
Date of Procedure: 03/12/25 Description of Procedure: SURGEON: MARÍA MARIN MD PROCESS CONTROL MANAGER: None. PREOPERATIVE DIAGNOSES: 1. Unstageable pressure ulcer, hip 2. Unstageable pressure ulcer, trochanteric 3. Moderate to severe protein malnutrition 4. Hypertensive heart disease 5. Elevated liver enzymes 6. Anemia 7. Leukocytosis POSTOPERATIVE DIAGNOSES: 1. Unstageable pressure ulcer, hip 2. Unstageable pressure ulcer, trochanteric 3. Moderate to severe protein malnutrition 4. Hypertensive heart disease 5. Elevated liver enzymes 6. Anemia 7. Leukocytosis 8. Decubiti ulcer stage III, 4 x 2 cm right greater trochanter/hip 9. Decubiti ulcer stage III, right sacrum 4 x 2.5 cm PROCEDURES PERFORMED: 1. Sharp excisional debridement deep subcutaneous to muscle right greater trochanter, 4 x 2 cm 2. Sharp excisional debridement deep subcutaneous to muscle right sacrum 4 x 2.5 cm 3. Mechanical debridement using Pulsavac lavage 3 L normal saline Anesthesia: GETA Estimated Blood Loss (ml): 30 Pathology: None Condition: stable COMPLICATIONS: None. Operative Findings: 1. Moderate purulent drainage from debridement of muscle, right greater trochanter/hip, 4 x 2 cm 2. Moderate purulent drainage from debridement of muscle, right sacrum, 4 x 2.5 cm INDICATIONS: The patient is a 85-year-old male admitted to the hospital after severe leukocytosis and purulent drainage from his wounds. Benefits and risks of surgical intervention were described including bleeding, infection, seroma, pain, wound dehiscence and recurrence. Informed consent was obtained. DESCRIPTION OR PROCEDURE: Patient was brought into the operating room. After sedation, the patient was placed in the left lateral decubitus position. Timeout protocol was confirmed with the surgical team regarding the patient's name, procedure to be performed including preoperative medications. DVT prophylaxis was confirmed. Both wounds were measured with a sharp excisional debridement deep subcutaneous tissue to muscle of the right greater trochanter, 4 x 2 cm. Using #10 blade, the wound was debrided sharply. Additionally, sharp excisional debridement using #10 blade was used to excise necrotic tissue of the sacrum measured 4 x 2.5 cm. Deep tissue cultures were obtained of all wounds. For mechanical debridement, Pulsavac 3 L normal saline solution was used to clean the bed of the tissue. The wound was also cleaned superficially using dilute hydrogen peroxide. Adhesive Tegaderm with 4 x 4 normal saline were placed along all wounds. At the end of the procedure, needle, sponge, and instrument count was verified correct by social service technician. The patient was transferred into the postanesthesia care unit in stable condition.
== END 2025-03-18 14:57 | DRG 853 ==
LOC: EC 15:03 → 4SSUR 17:48
PROVIDERS: ADMIT Student in an Organized Health Care Education/Training Program; ATTEND Student in an Organized Health Care Education/Training Program
PROC: 0KBN0ZZ Excision of Right Hip Muscle, Open Approach (ICD-10-PCS; principal; 2025-03-12 10:50)
PROC: 05HB33Z Insertion of Infusion Device into Right Basilic Vein, Percutaneous Approach (ICD-10-PCS; 2025-03-18)
DX: A41.51 Sepsis due to Escherichia coli [E. coli] (principal); E43 Unspecified severe protein-calorie malnutrition; L89.153 Pressure ulcer of sacral region, stage 3; L89.213 Pressure ulcer of right hip, stage 3; D53.9 Nutritional anemia, unspecified; F32.A Depression, unspecified; I11.9 Hypertensive heart disease without heart failure; L03.319 Cellulitis of trunk, unspecified; R17 Unspecified jaundice; E87.1 Hypo-osmolality and hyponatremia; R62.7 Adult failure to thrive; B96.4 Proteus (mirabilis) (morganii) as the cause of diseases classified elsewhere; Z68.23 Body mass index [BMI] 23.0-23.9, adult; R74.01 Elevation of levels of liver transaminase levels; E78.5 Hyperlipidemia, unspecified; M54.9 Dorsalgia, unspecified; R32 Unspecified urinary incontinence; R19.7 Diarrhea, unspecified; Z79.82 Long term (current) use of aspirin; Z79.899 Other long term (current) drug therapy; Z99.3 Dependence on wheelchair; Z71.3 Dietary counseling and surveillance
CPT/HCPCS: 36415; 36573; 71045; 76705; 80053; 80202; 81001; 82550; 83735; 85025; 85027; 85652; 86140; 87040; 87070; 87075; 87077; 87186; 87205; 87324; 88304; 93005; 96365; 96366; 96367; 96372; 99285